=== PATIENT | male | born 1965 | race Caucasian/White ===

== ENCOUNTER 2017-01-17 07:45 | Inpatient (IN) | payer MEDICAID ==
[~2017-01-17] VITALS: Ht 185.4 cm; Wt 88.1 kg
[2017-01-17] VITALS (9 sets, daily range): BP systolic 112–148; BP diastolic 63–90
[~2017-01-17 07:45] MED LIST: DILANTIN 100MG100 MG PO; DILANTIN100 MG PO; IBUPROFEN800 MG PO; LIPITOR80 MG PO; OXYCODONE HCL30 MG PO; VALIUM 10MG TAB10 MG PO
--- OUTSIDE RECORDS SUMMARY | 2017-01-17 08:05 | External Medical Summary Rpt ---
Author Author , Organization [facility] Address Unknown Phone Unavailable Care Team Providers Care Artificial Breeding Technician Name Role Phone ELISSA BERMAN MD, PSC, Unavailable Unavailable ELISSA BERMAN MD, PSC BESSON, BESSON Unavailable Unavailable BESSON TORSTEN, BESSON Unavailable Unavailable TORSTEN TAMMY SAVI, TAMMY Unavailable Unavailable SAVI [facility] Unavailable Unavailable [place], [facility] Unavailable Unavailable [place], [facility] [place] LYNDA, LYNDA Unavailable Unavailable DUFF, DUFF Unavailable Unavailable ECKERLINE JR RIGO, Unavailable Unavailable ECKERLINE JR RIGO ESCOTT EDW, ESCOTT Unavailable Unavailable EDW [facility] Unavailable Unavailable [facility], [facility], [facility] Un[facility], [facility] Unavailable Unavailable INTERNAL MED, [facility] MAN JUS, Unavailable Unavailable MAN JUS NICKELS JACOBY, NICKELS Unavailable Unavailable JACOBY [facility] Unavailable Unavailable EMS, [facility] Unavailable [facility]available EMS, [facility] EMS [facility], Unavailable Unavailable [facility] Purpose Continuity of Care Document - 04-02-2014 through 2016 Problems Code Diagnosis DOS Provider Status R2241 LOCALIZED 12-09-2016 [facility] RIGHT LOWER LIMB E785 HYPERLIPIDE 12-02-2016 [place] UNSPECIFIED INTERNAL MED [id number] EPILEPSY 12-02-2016 [place] UNS NOT [place] INTRACT W/O INTERNAL STATUS MED EPILEPTICUS G894 CHRONIC 12-02-2016 [place] SYNDROME INTERNAL MED M479 SPONDYLOSIS 12-02-2016 [place] UNSPECIFIED INTERNAL MED G8929 OTHER 08-01-2016 CORNELIUS GALLOWAY MD, PSC PAIN M542 CERVICALGIA 08-01-2016 [facility] M545 LOW BACK 08-01-2016 [facility] M546 PAIN IN 08-01-2016 [facility] SPINE INC Z0283 ENCOUNTER 12-15-2015 [facility] BLOOD-ALCOH INC OL AND BLOOD-DRUG TEST 2572 OTHER 02-09-2015 [facility] TESTICULAR PHYSICIANS HYPOFUNCTIO LA N 2724 OTHER AND 02-09-2015 COMBINED UNSPECIFIED PHYSICIANS LA HYPERLIPIDE IDA 28710 OTHER 02-09-2015 COMBINED CONVULSIONS PHYSICIANS LA 7242 LUMBAGO 11-07-2014 [place] [facility] INTERNAL MED 3384 CHRONIC 08-15-2014 [place] SYNDROME INTERNAL MED 66448 OTHER 05-23-2014 [place] [facility] CARTILAGE OTHER 7937 NONSPC ABN 05-23-2014 [place] [facility] RAD SERV & OTH EXM FOUNDATION MUSCULSKELT L SYS 93147 UNSPECIFIED 05-23-2014 [place] [facility] FRACTURE [facility] LOWER END FOREARM V5489 OTHER 05-23-2014 [facility] AFTERCARE 99130 OTHER 04-25-2014 [facility] FRACTURES OF DISTAL END OF RADIUS V537 FITTING AND 04-25-2014 [place] [facility] OF [facility] ORTHOPEDIC DEVICE 20177 UNSPECIFIED 04-02-2014 [facility] EXOPHTHALMO [facility] S 7384 ACQUIRED 04-02-2014 [place] [facility] SPONDYLOLIS SERV THESIS [facility]OUNDATIO 8020 NASAL 04-02-2014 [facility] SERV CLOSED [facility]ATION FRACTURE 8026 ORBITAL 04-02-2014 [place] [facility] , SERV CLOSED [facility] FRACTURE 8028 OTHER 04-02-2014 [place] [facility]ACIAL [facility] B[facility]ATION CLOSED FRACTURE 01944 CLOSED 04-02-2014 [place] [facility]RA[facility]URE OF SERV [facility] UNSPECIFIED PART OF RADIUS 8702 LACERATION 04-02-2014 [place] [facility] EYELID SERV INVOLVING FOUNDATION LACRIMAL PASSAGES 920 CONTUSION 04-02-2014 [place] [facility] SCALP AND FOUNDATION NECK EXCEPT EYE 9599 INJURY 04-02-2014 [place] OTHER AND [place] UNSPECIFIED [facility] EMS UNSPECIFIED SITE E8849 OTHER 04-02-2014 [place] [facility]AL [facility] FALL FROM [facility] ONE LEVEL TO ANOTHER V714 OBSERVATION 04-02-2014 [place] [facility] FOLLOW[facility] OTHER [facility] ACCIDENT Medications Na ND Rx Da Fi Fi Am Da Di Ph RX Ph St me C No te ll ll ou ys ag ar # ys at rm s nt no ma ic us Or Da si cy ia de te s n re d OX 57 04 05 18 30 00 CL Ac YC 66 -0 -0 0. 00 IN ti OD 40 7- 5- 00 00 IC ve ON 22 20 20 0 42 E 48 17 17 74 PH HC 8 48 AR L MA 30 CY MG TA BL ET FL 50 03 04 16 30 00 CL Ac UT 38 -2 -2 .0 00 IN ti IC 30 8- 1- 00 00 IC ve 70 20 20 42 ON 01 17 17 45 PH E 6 67 AR AR MA OP CY 50 MC G SP RA Y PH 51 03 04 12 30 00 CL Ac EN 67 -2 -2 0. 00 IN ti YT 24 8- 1- 00 00 IC ve OI 11 20 20 0 41 N 10 17 17 73 PH SO 1 56 AR D MA EX CY T 10 0 MG CA P AT 60 03 04 30 30 00 CL Ac OR 50 -2 -2 .0 00 IN ti VA 52 8- 1- [address] 67 20 20 41 AT 10 17 17 99 PH IN 9 35 AR MA 80 CY MG TA BL ET IB 67 03 04 90 30 00 CL Ac UP 87 -2 -2 .0 00 IN ti RO 70 8- 1- 00 00 IC ve FE 32 20 20 42 N 10 17 17 45 PH 80 5 68 AR 0 MA MG CY TA BL ET OX 57 03 03 18 30 00 CL Ac YC 66 -0 -3 0. 00 IN ti OD 40 8- 1- 00 00 IC ve ON 22 20 20 0 42 E 48 17 17 45 PH HC 8 61 AR L MA 30 CY MG TA BL ET PH 51 02 03 12 30 00 CL Ac EN 67 -2 -2 0. 00 IN ti YT 24 3- 4- 00 00 IC ve OI 11 20 20 0 41 N 10 17 17 73 PH SO 1 56 AR D MA EX CY T 10 0 MG CA P AT 60 02 03 30 30 00 CL Ac OR 50 -2 -2 .0 00 IN ti VA 52 3- 4- [address] 67 20 20 41 AT 10 17 17 99 PH IN 9 35 AR MA 80 CY MG TA BL ET FL 50 02 03 16 30 00 CL Ac UT 38 -2 -2 .0 00 IN ti IC 30 3- 4- 00 00 IC ve 70 20 20 41 ON 01 17 17 29 PH E 6 37 AR AR MA OP CY 50 MC G SP RA Y IB 67 02 03 90 30 00 CL Ac UP 87 -2 -2 .0 00 IN ti RO 70 3- 4- 00 00 IC ve FE 32 20 20 41 N 10 17 17 29 PH 80 5 36 AR 0 MA MG CY TA BL ET OX 57 02 03 18 30 00 CL Ac YC 66 -0 -0 0. 00 IN ti OD 40 6- 3- 00 00 IC ve ON 22 20 20 0 42 E 48 17 17 12 PH HC 8 93 AR L MA 30 CY MG TA BL ET PH 51 01 02 12 30 00 CL Ac EN 67 -2 -1 0. 00 IN ti YT 24 4- 7- 00 00 IC ve OI 11 20 20 0 41 N 10 17 17 73 PH SO 1 56 AR D MA EX CY T 10 0 MG CA P FL 50 01 02 16 30 00 CL Ac UT 38 -2 -1 .0 00 IN ti IC 30 4- 7- 00 00 IC ve 70 20 20 41 ON 01 17 17 29 PH E 6 37 AR AR MA OP CY 50 MC G SP RA Y IB 67 01 02 90 30 00 CL Ac UP 87 -2 -1 .0 00 IN ti RO 70 4- 7- 00 00 IC ve FE 32 20 20 41 N 10 17 17 29 PH 80 5 36 AR 0 MA MG CY TA BL ET AT 60 01 02 30 30 00 CL Ac OR 50 -2 -1 .0 00 IN ti VA 52 4- 7- [address] 67 20 20 41 AT 10 17 17 29 PH IN 8 38 AR MA 80 CY MG TA BL ET OX 57 01 02 21 30 00 CL Ac YC 66 -0 -0 0. 00 IN ti OD 40 7- 3- 00 00 IC ve ON 22 20 20 0 41 E 48 17 17 84 PH HC 8 15 AR L MA 30 CY MG TA BL ET PH 51 12 01 12 30 00 CL Ac EN 67 -2 -2 0. 00 IN ti YT 24 7- 7- 00 00 IC ve OI 11 20 20 0 41 N 10 16 17 21 PH SO 1 59 AR D MA EX CY T 10 0 MG CA P AT 60 12 01 30 30 00 CL Ac OR 50 -2 -2 .0 00 IN ti VA 52 7- 7- [address] 67 20 20 41 AT 10 16 17 29 PH IN 8 38 AR MA 80 CY MG TA BL ET FL 00 12 01 16 30 00 CL Ac UT 05 -2 -2 .0 00 IN ti IC 43 7- 7- 00 00 IC ve 27 20 20 41 ON 09 16 17 29 PH E 9 37 AR AR MA OP CY 50 MC G SP RA Y IB 67 12 01 90 30 00 CL Ac UP 87 -2 -2 .0 00 IN ti RO 70 7- 7- 00 00 IC ve FE 32 20 20 41 N 10 16 17 29 PH 80 5 36 AR 0 MA MG CY TA BL ET DI 00 12 01 60 30 00 CL Ac AZ 37 -2 -2 .0 00 IN ti EP 80 8- 7- 00 00 IC ve AM 47 20 20 41 70 16 17 74 PH 10 5 56 AR MA MG CY TA BL ET OX 57 12 01 21 30 00 CL Ac YC 66 -0 -1 0. 00 IN ti OD 40 8- 3- 00 00 IC ve ON 22 20 20 0 41 E 48 16 17 56 PH HC 8 68 AR L MA 30 CY MG TA BL ET NI 00 02 01 36 30 00 CL Ac CO 11 -1 -0 0. 00 IN ti TI 30 2- 9- 00 00 IC ve NE 87 20 20 0 39 4 30 16 17 13 PH 5 73 AR MG MA CY LO ZE NG E Procedures Procedure DOS Code Location Performer Comment RADEX 91267 [place] [facility] FOOT 7 MEDICAL COMPLETE IMAGING MINIMUM 3 ASS VIEWS COMPREHEN 99877 COMBINED COMBINED SIVE 7 PHYSICIAN PHYSICIAN METABOLIC S LA S LA PANEL LIPID 27861 COMBINED COMBINED PANEL 7 PHYSICIAN PHYSICIAN S [place] S [place] DRUG 51137 COMBINED COMBINED SCREEN 7 PHYSICIAN PHYSICIAN QUANTITAT S LA S LA TAMERA PHENYTOIN TOTAL DRUG 97266 COMBINED TAMMY SCREEN 6 PHYSICIAN SAVI QUANTITAT S LA TAMERA PHENYTOIN TOTAL LIPID 09107 COMBINED TAMMY PANEL 6 PHYSICIAN SAVI S LA COMPREHEN 02190 COMBINED TAMMY SIVE 6 PHYSICIAN SAVI METABOLIC S LA PANEL DRUG TST G0477 COMBINED TAMMY PRESUMP;C 6 PHYSICIAN SAVI PBL BEING S LA READ DC OPT OBV ONLY DRUG TST G0477 [facility] PRESUMP;C 6 [facility] PBL BEING INC INC READ DC OPT OBV ONLY DRUG TEST G0482 [facility] DEFINITV [address] ID INC INC METH P DAY 15-21 DR SANIA COMPREHEN 18920 COMBINED COMBINED SIVE 5 PHYSICIAN PHYSICIAN METABOLIC S LA S LA PANEL LIPID 20912 COMBINED COMBINED PANEL 5 PHYSICIAN PHYSICIAN S LA S LA DRUG 72457 COMBINED COMBINED SCREEN 5 PHYSICIAN PHYSICIAN QUANTITAT S LA S LA TAMERA PHENYTOIN TOTAL BLOOD 17974 COMBINED COMBINED COUNT 5 PHYSICIAN PHYSICIAN COMPLETE S LA S LA AUTO&[place] [address] COMBINED COMBINED TESTOSTER 4 PHYSICIAN PHYSICIAN ONE TOTAL S LA S LA BLOOD 23515 COMBINED COMBINED COUNT 4 PHYSICIAN PHYSICIAN COMPLETE S LA S LA AUTO&AUTO DIFRNTL WBC DRUG 90560 COMBINED COMBINED SCREEN 4 PHYSICIAN PHYSICIAN QUANTITAT S LA S LA TAMERA PHENYTOIN TOTAL COMPREHEN 64003 COMBINED COMBINED SIVE 4 PHYSICIAN PHYSICIAN METABOLIC S LA S LA PANEL LIPID 97400 COMBINED COMBINED PANEL 4 [place] [address] COMBINED COMBINED PROSTATE 4 PHYSICIAN PHYSICIAN SPECIFIC S LA S LA ANTIGEN TOTAL RADEX 98889 [facility] HOSPITAL MINIMUM 3 VIEWS RADEX 75261 [place] [facility] 4 MEDICAL Y JUS COMPLETE SERV MINIMUM 3 FOUNDATIO VIEWS RADEX 88440 [place] FOREARM 2 4 MEDICAL JACOBY VIEWS SERV [place] RADEX 16455 [place] 4 MEDICAL JACOBY COMPLETE SERV MINIMUM 3 FOUNDATIO VIEWS AMB A0427 [facility] SERVICE 4 [facility] TRANSPORT LEVEL 1 RADIOLOGI 94014 [place] C 4 MEDICAL JACOBY EXAMINATI SERV [place] [address] [place] THORACIC 4 MEDICAL JACOBY SPINE W/[place] [address] [place] ANGIOGRAP 4 MEDICAL EDW HY NECK SERV W/CONTRAS FOUNDAT[place] T/[place] [address] [place] ANGIOGRAP 4 MEDICAL JACOBY HY CHEST SERV W/CONTRAS FOUNDATIO T/[place] [address] [place] CERVICAL 4 MEDICAL JACOBY SPINE W/O SERV CONTRAST FOUNDATIO MATERIAL RADEX 66469 [place] ELBOW 4 MEDICAL JACOBY COMPLETE SERV MINIMUM 3 FOUNDATIO VIEWS RADEX 76706 [place] HAND 4 MEDICAL JACOBY MINIMUM [address] [place] [address] [place] ABDOMEN & 4 MEDICAL JACOBY PELVIS SERV W/CONTRAS FOUNDATIO T MATERIAL GROUND A0425 [facility] [place] [address] [place] MAXILLOFA 4 MEDICAL EDW CIAL W/[place] [address] PAUL ESCOTT ANGIOGRAP 4 MEDICAL EDW HY HEAD SERV W/CONTRAS FOUNDATIO T/NONCONT N [place] LUMBAR 53423 [place] SPINE 4 MEDICAL JACOBY W/O SERV CONTRAST FOUNDATIO MATERIAL RADIOLOGI 27406 [place] C 4 MEDICAL JACOBY EXAMINATI SERV ON PELVIS FOUNDATIO 1/2 VIEWS Encounters Encounter Start End Date Code Location Performer Type Date [facility]PAT[facility]EN INC T OFFICE 53748 [facility] OUTPATI[facility] 7 7 [facility] T VISIT INTERNAL 25 MED MINUTES OFFICE 37696 [facility] OUTPATIEN 6 6 [facility] TORSTEN T VISIT INTERNAL 25 MED MINUTES OFFICE 86972 ELISSA DUFF OUTPATIEN 6 6 MD CULLEN, T [facility] PSC MINUTES [facility]OSP[facility] - 6 6 [facility] OUTPATIEN INC T OFFICE 54925 [facility] 6 6 MEM [facility] T NEW INC MINUTES OFFICE 86733 [place] [facility] OUTPATIEN 6 6 [facility] TORSTEN T VISIT INTERNAL 25 MED MINUTES [facility]OS[facility] - 6 6 [facility] OUTPATIEN INC T OFFICE 13129 [place] [facility] OUTPATIEN 5 5 [facility] TORSTEN T VISIT INTERNAL 15 MED MINUTES OFFICE 54418 [facility] [facility] OUTPATIEN 5 5 [facility] TORSTEN T VISIT INTERNAL 15 MED MINUTES OFFICE 53312 [facility] [facility] OUTPATIEN 4 4 [facility] TORSTEN T VISIT INTERNAL 25 MED MINUTES HOSPITAL UNIVERSIT - 4 4 Y [facility] T OFFICE 86842 [facility] 4 4 Y T VISIT HOSPITAL 15 MINUTES OFFICE 88546 [facility] 4 4 Y T VISIT HOSPITAL 10 MINUTES HOSPITAL UNIVERSIT - 4 4 Y [facility] T EMERGENCY 03555 PAUL ECKERLINE 4 4 MEDICAL JR [facility] DEPARTMEN SERV T VISIT FOUNDATIO HIGH/URGE N NT SEVERITY
--- OUTSIDE RECORDS SUMMARY | 2017-01-17 08:05 | External Medical Summary Rpt ---
Author Author , Organization [employer] Address Unknown Phone Unavailable Care Team Providers Care Underwriting Technician Name Role Phone ELISSA BERMAN MD, PSC, Unavailable Unavailable ELISSA BERMAN MD, PSC BESSON, BESSON Unavailable Unavailable BESSON TORSTEN, BESSON Unavailable Unavailable TORSTEN TAMMY SAVI, TAMMY Unavailable Unavailable SAVI [facility] Unavailable Unavailable [place], [facility] [place] [facility] Unavailable Unavailable [place], [facility] [place] LYNDA, LYDNA Unavailable Unavailable DUFF, DUFF Unavailable Unavailable ECKERLINE JR RIGO, Unavailable Unavailable ECKERLINE JR RIGO ESCOTT EDW, ESCOTT Unavailable Unavailable EDW [facility] Unavailable Unavailable INC, [facility] Un[facility] Unavailable [facility], [facility] Un[facility] Un[facility], [facility], [facility] Un[facility] Un[facility], [facility] MAN JUS, Unavailable Unavailable MAN JUS NICKELS JACOBY, NICKELS Unavailable Unavailable JACOBY [facility] Unavailable Unavailable EMS, [facility] Unavailable Unavailable EMS, [facility], Unavailable Unavailable [facility] Purpose Continuity of Care Document - 04-02-2014 through 2016 Problems Code Diagnosis DOS Provider Status R2241 LOCALIZED 12-09-2016 [place] [place] [facility] RIGHT LOWER LIMB E785 HYPERLIPIDE 12-02-2016 [place] UNSPECIFIED INTERNAL MED [id number] EPILEPSY 12-02-2016 [place] UNS NOT [place] INTRACT [...] 02-09-2015 COMBINED UNSPECIFIED PHYSICIANS [place] HYPERLIPIDE IDA 49438 OTHER 02-09-2015 COMBINED CONVULSIONS PHYSICIANS [place] 7242 LUMBAGO 11-07-2014 [place] [facility] INTERNAL MED 3384 CHRONIC 08-15-2014 [place] SYNDROME INTERNAL MED 39892 OTHER 05-23-2014 [place] [facility] DIS[facility] SERV [facility] CARTILAGE OTHER 7937 NONSPC ABN 05-23-2014 [place] [facility] FINDNG RAD SERV & OTH EXM FOUNDATION [place] SYS 99042 UNSPECIFIED 05-23-2014 [place] [facility] CL[facility]ED SERV FRACTURE FOUNDATION LOWER END FOREARM V5489 OTHER 05-23-2014 [facility] AFTERCARE 08201 OTHER 04-25-2014 [facility] FRACTURES OF DISTAL END OF RADIUS V537 FITTING AND 04-25-2014 [place] [facility] ADJUSTMENT SERV OF [facility]ATION ORTHOPEDIC DEVICE 06251 UNSPECIFIED 04-02-2014 [place] [facility] EXOPHTHALMO FOUNDATION S 7384 ACQUIRED 04-02-2014 [place] [facility] SPONDYLOLIS SERV THESIS FOUNDATIO 8020 NASAL 04-02-2014 [facility], SERV CLOSED FOUNDATION FRACTURE 8026 ORBITAL 04-02-2014 [facility] , SERV CLOSED FOUNDATION FRACTURE 8028 OTHER 04-02-2014 [facility] FACIAL SERV B[facility]ES FOUNDATION CLOSED FRACTURE 67016 CLOSED 04-02-2014 [place] [facility] FRACTURE OF SERV FOUNDATION UNSPECIFIED PART OF RADIUS 8702 LACERATION 04-02-2014 [facility] EYELID SERV INVOLVING FOUNDATION LACRIMAL PASSAGES 920 CONTUSION 04-02-2014 [facility] FACE SERV SCALP AND FOUNDATION NECK EXCEPT EYE 9599 INJURY 04-02-2014 [facility] OTHER AND [place] UNSPECIFIED COUNTY EMS UNSPECIFIED SITE E8849 OTHER 04-02-2014 [place] [facility] ACCIDENTAL SERV FALL FROM FOUNDATION ONE LEVEL TO ANOTHER V714 OBSERVATION 04-02-2014 [place] [facility] FOLLOWING SERV OTHER FOUNDATION ACCIDENT Medications [...] 17 45 PH E 6 67 AR GA MA OP CY 50 MC G SP [...] 17 29 PH E 6 37 AR GA MA OP CY 50 MC G SP [...] 17 29 PH E 6 37 AR GA MA OP CY 50 MC G SP [...] 17 29 PH E 9 37 AR GA MA OP CY 50 MC G SP [...] Procedure DOS Code Location Performer Comment RADEX 73632 [place] 7 MEDICAL COMPLETE IMAGING MINIMUM 3 ASS VIEWS COMPREHEN 55434 COMBINED COMBINED SIVE 7 PHYSICIAN PHYSICIAN METABOLIC S LA S LA PANEL LIPID 77063 COMBINED COMBINED PANEL 7 PHYSICIAN PHYSICIAN S LA S LA DRUG 87276 COMBINED COMBINED SCREEN 7 PHYSICIAN PHYSICIAN QUANTITAT S LA S LA TAMERA PHENYTOIN TOTAL DRUG 64918 COMBINED TAMMY SCREEN 6 PHYSICIAN SAVI QUANTITAT S LA TAMERA PHENYTOIN TOTAL LIPID 28561 COMBINED TAMMY PANEL 6 PHYSICIAN SAVI S LA COMPREHEN 42759 COMBINED TAMMY SIVE 6 PHYSICIAN SAVI METABOLIC [...] METH P DAY 15-21 DR SANIA COMPREHEN 93950 COMBINED COMBINED SIVE 5 PHYSICIAN PHYSICIAN METABOLIC S LA S LA PANEL LIPID 71080 COMBINED COMBINED PANEL 5 PHYSICIAN PHYSICIAN S LA S LA DRUG 73133 COMBINED COMBINED SCREEN 5 PHYSICIAN PHYSICIAN QUANTITAT S LA S LA TAMERA PHENYTOIN TOTAL BLOOD 99211 COMBINED COMBINED COUNT 5 PHYSICIAN PHYSICIAN COMPLETE S LA S LA AUTO&[place] [address] COMBINED COMBINED TESTOSTER 4 PHYSICIAN PHYSICIAN ONE TOTAL S LA S LA BLOOD 52520 COMBINED COMBINED COUNT 4 PHYSICIAN PHYSICIAN COMPLETE S LA S LA AUTO&AUTO DIFRNTL WBC DRUG 93858 COMBINED COMBINED SCREEN 4 PHYSICIAN PHYSICIAN QUANTITAT S LA S LA TAMERA PHENYTOIN TOTAL COMPREHEN 57139 COMBINED COMBINED SIVE 4 PHYSICIAN PHYSICIAN METABOLIC S LA S LA PANEL LIPID 08453 COMBINED COMBINED PANEL 4 [place] [address] COMBINED COMBINED PROSTATE 4 PHYSICIAN PHYSICIAN SPECIFIC S LA S LA ANTIGEN TOTAL RADEX 50101 [facility] HOSPITAL MINIMUM 3 VIEWS RADEX 47874 [place] [facility] 4 MEDICAL Y JUS COMPLETE SERV MINIMUM 3 FOUNDATIO VIEWS RADEX 95067 [place] FOREARM 2 4 MEDICAL JACOBY VIEWS SERV FOUNDATIO RADEX 32161 [place] WRIST 4 MEDICAL JACOBY COMPLETE SERV MINIMUM 3 FOUNDATIO VIEWS AMB A0427 [facility] SERVICE 4 [facility] EMS TRANSPORT LEVEL 1 RADIOLOGI 29629 [place] C 4 MEDICAL JACOBY EXAMINATI SERV ON CHE[place] [address] [place] THORACIC 4 MEDICAL JACOBY SPINE W/[place] [address] [place] [facility] ANGIOGRAP 4 MEDICAL EDW HY NECK SERV W/CONTRAS [place] [address] [place] ANGIOGRAP 4 MEDICAL JACOBY HY CHEST SERV W/CONTR[place] [address] [place] CERVICAL 4 MEDICAL JACOBY SPINE W/O SERV CONTRAST FOUNDATIO MATERIAL RADEX 19152 [place] N[place] ELBOW 4 MEDICAL JACOBY COMPLETE SERV MINIMUM 3 FOUNDATIO VIEWS RADEX 88499 [place] HAND 4 MEDICAL JACOBY MINIMUM [address] [place] [address] [place] ABDOMEN & 4 MEDICAL JACOBY PELVIS SERV W/CONTRAS FOUNDATIO T MATERIAL GROUND A0425 [facility] [place] [address] [place] MAXILLOFA 4 MEDICAL EDW CIAL W/[place] [address] PAUL ESCOTT ANGIOGRAP 4 MEDICAL EDW HY HEAD SERV W/CONTRAS FOUNDATIO T/NONCONT N [place] LUMBAR 96755 [place] SPINE 4 MEDICAL JACOBY W/O SERV CONTRAST FOUNDATIO MATERIAL RADIOLOGI 93784 [place] C 4 MEDICAL JACOBY EXAMINATI SERV ON PELVIS FOUNDATIO 1/2 VIEWS Encounters Encounter Start End Date Code Location Performer Type Date [facility]PAT[facility] T OFFICE 39324 [facility] 7 7 [facility] T VISIT INTERNAL 25 MED MINUTES OFFICE 81493 [facility] 6 6 [facility] TORSTEN T VISIT INTERNAL 25 MED MINUTES OFFICE 76565 ELISSA DUFF OUTPATIEN 6 6 MD CULLEN, T [facility] P[facility] MINUTES [facility]OS[facility] - 6 6 [facility] OUTPATIEN INC T OFFICE 41372 [facility] 6 6 [facility] T NEW INC MINUTES OFFICE 59325 [facility] OUT[facility] 6 6 [facility] TORSTEN T VISIT INTERNAL 25 MED MINUTES [facility]OSP[facility] - 6 6 [facility] OUTPATIEN INC T OFFICE 04073 [facility] 5 5 [facility] TORSTEN T VISIT INTERNAL 15 MED MINUTES OFFICE 29870 [facility] 5 5 [facility] TORSTEN T VISIT INTERNAL 15 MED MINUTES OFFICE 39088 [facility] OUT[facility] 4 4 [facility] TORSTEN T VISIT INTERNAL 25 MED MINUTES HOSPITAL UNIVERSIT - 4 4 Y [facility] T OFFICE 73563 [facility] 4 4 Y T VISIT HOSPITAL 15 MINUTES OFFICE 95936 [facility] 4 4 Y T VISIT HOSPITAL 10 MINUTES HOSPITAL UNIVERSIT - 4 4 Y [facility] T EMERGENCY 61531 PAUL ECKERLINE 4 4 MEDICAL JR [facility] DEPARTMEN SERV T VISIT FOUNDATIO HIGH/URGE N NT SEVERITY
--- OUTSIDE RECORDS SUMMARY | 2017-01-17 08:07 | External Medical Summary Rpt ---
Author Author [employer] Yun, [employer] Organization [employer] Address Unknown Phone Unavailable
--- OUTSIDE RECORDS SUMMARY | 2017-01-17 08:07 | External Medical Summary Rpt ---
Demographics Preferred Language Libyan Marital Status Unknown Gnosticist Affiliation Unknown Race Unknown Ethnic Group Unknown Author Author , Organization [employer] Address Unknown Phone Unavailable Purpose Continuity of Care Document - through 2016 Immunization No patient found.
--- OUTSIDE RECORDS SUMMARY | 2017-01-17 08:07 | External Medical Summary Rpt ---
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 Name Role Phone ELISSA BERMAN MD, PSC, Unavailable Unavailable ELISSA BERMAN MD, PSC BESSON, BESSON Unavailable Unavailable BESSON TORSTEN, BESSON Unavailable Unavailable TORSTEN TAMMY SAVI, TAMMY Unavailable Unavailable SAVI [facility] Un[facility] Unavailable [facility], [facility] Unavailable Unavailable [facility], [facility] [place] DUFF, DUFF Unavailable Unavailable ECKERLINE JR RIGO, Unavailable Unavailable ECKERLINE JR RIGO ESCOTT EDW, ESCOTT Unavailable Unavailable EDW [facility] Un[facility] Un[facility], [facility], [facility] MOIZ JUAN ANTONIO, MOIZ JUAN ANTONIO Unavailable Unavailable [facility] Unavailable Unavailable INTERNAL MED, [facility] JUS, Unavailable Unavailable MAN JUS NICKELS JACOBY, NICKELS Unavailable Unavailable JACOBY [facility] Unavailable Unavailable EMS, [facility] Unavailable Unavailable EMS, [facility], Unavailable Unavailable [facility] Purpose Continuity of Care Document - 04-02-2014 through 2016 Problems Code Diagnosis DOS Provider Status R2241 LOCALIZED 12-09-2016 [facility] MEDICAL MASS & LUMP IMAGING ASS RIGHT LOWER LIMB E785 HYPERLIPIDE 12-02-2016 [facility] [place] UNSPECIFIED INTERNAL MED [id number] EPILEPSY 12-02-2016 [facility] NOT [facility] INTRACT [...] SPINE INC Z0283 ENCOUNTER 12-15-2015 [facility] ARM[facility] BLOOD-ALCOH INC OL AND BLOOD-DRUG TEST 2572 OTHER 02-09-2015 [facility] TESTICULAR PHYSICIANS HYPOFUNCTIO LA N 2724 OTHER AND 02-09-2015 COMBINED UNSPECIFIED PHYSICIANS LA HYPERLIPIDE IDA 99224 OTHER 02-09-2015 [facility] CONVULSIONS PHYSICIANS LA 7242 LUMBAGO 11-07-2014 [facility] INTERNAL MED 3384 CHRONIC 08-15-2014 [facility] [place] SYNDROME INTERNAL MED 16335 OTHER 05-23-2014 [facility] DISORDERS SERV OF B[facility] AND [facility] CARTILAGE OTHER 7937 NONSPC ABN 05-23-2014 [facility] FINDNG RAD SERV & OTH EXM FOUNDATION [place] 01619 UNSPECIFIED 05-23-2014 [facility] CLOSED SERV FRACTURE FOUNDATION LOWER END FOREARM V5489 OTHER 05-23-2014 [facility] AFTERCARE 84093 OTHER 04-25-2014 [facility] FRACTURES OF DISTAL END OF RADIUS V537 FITTING AND 04-25-2014 [facility] ADJUSTMENT SERV OF [facility] ORTHOPEDIC DEVICE 21105 UNSPECIFIED 04-02-2014 [facility] EXOPHTHALMO [facility] S 7384 ACQUIRED 04-02-2014 [facility] SPONDYLOLIS SERV THESIS [facility]AT[facility] 8020 NASAL 04-02-2014 [facility], SERV CLOSED [facility]OUNDATION FRACTURE 8026 ORBITAL 04-02-2014 [facility] , SERV CLOSED [facility] FRACTURE 8028 OTHER 04-02-2014 [facility] FACIAL SERV [facility]ATION CLOSED FRACTURE 73652 CLOSED 04-02-2014 [facility] FRACTURE OF SERV [facility] UNSPECIFIED PART OF RADIUS 8702 LACERATION 04-02-2014 [facility] EYELID SERV INVOLVING FOUNDATION LACRIMAL PASSAGES 920 CONTUSION 04-02-2014 [facility] FACE SERV SCALP AND FOUNDATION NECK EXCEPT EYE 9599 INJURY 04-02-2014 [facility] OTHER AND [place] UNSPECIFIED [facility] EMS UNSPECIFIED SITE E8849 OTHER 04-02-2014 [facility] ACCIDENTAL SERV FALL FROM FOUNDATION ONE LEVEL TO ANOTHER V714 OBSERVATION 04-02-2014 [facility] FOLLOWING SERV OTHER FOUNDATION ACCIDENT Medications [...] 17 45 PH E 6 67 AR [place] MA OP CY 50 MC G SP [...] 17 29 PH E 6 37 AR [place] MA OP CY 50 MC G SP [...] 17 29 PH E 6 37 AR [place] MA OP CY 50 MC G SP [...] MA 30 CY MG TA BL ET DI 00 12 01 60 30 00 CL Ac AZ 37 -2 -2 .0 00 IN ti EP 80 8- 7- 00 00 IC ve AM 47 20 20 41 70 16 17 74 PH 10 5 56 AR MA MG CY TA BL ET PH 51 12 01 [...] 17 29 PH E 9 37 AR [place] MA OP CY 50 MC G SP [...] Procedure DOS Code Location Performer Comment RADEX 89485 [facility] FOOT 7 [facility] COMPLETE INC INC MINIMUM 3 VIEWS COMPREHEN 36929 COMBINED COMBINED SIVE 7 PHYSICIAN PHYSICIAN METABOLIC S LA S LA PANEL LIPID 91793 COMBINED COMBINED PANEL 7 PHYSICIAN PHYSICIAN S LA S LA DRUG 66038 COMBINED COMBINED SCREEN 7 PHYSICIAN PHYSICIAN QUANTITAT S LA S LA TAMERA PHENYTOIN TOTAL LIPID 56333 COMBINED TAMMY PANEL 6 PHYSICIAN SAVI S LA DRUG TST G0477 COMBINED TAMMY PRESUMP;C 6 PHYSICIAN SAVI PBL BEING S LA READ DC OPT OBV ONLY DRUG 85253 COMBINED TAMMY SCREEN 6 PHYSICIAN SAVI QUANTITAT S LA TAMERA PHENYTOIN TOTAL COMPREHEN 70833 COMBINED TAMMY SIVE 6 PHYSICIAN SAVI METABOLIC S LA PANEL DRUG TEST G0482 [facility] DEFINITV [address] ID INC INC METH P DAY 15-21 DR CL DRUG TST G0477 [facility] PRESUMP;C 6 MEM HOSP MEM HOSP PBL BEING INC INC READ DC OPT OBV ONLY LIPID 61547 COMBINED COMBINED PANEL 5 PHYSICIAN PHYSICIAN S LA S LA COMPREHEN 74527 COMBINED COMBINED SIVE 5 PHYSICIAN PHYSICIAN METABOLIC S LA S LA PANEL BLOOD 11407 COMBINED COMBINED COUNT 5 PHYSICIAN PHYSICIAN COMPLETE S LA S LA AUTO&AUTO DIFRNTL WBC DRUG 98329 COMBINED COMBINED SCREEN 5 PHYSICIAN PHYSICIAN QUANTITAT S LA S [place] [address] COMBINED COMBINED TESTOSTER 4 PHYSICIAN PHYSICIAN ONE TOTAL S LA S LA BLOOD 64010 COMBINED COMBINED COUNT 4 PHYSICIAN PHYSICIAN COMPLETE S LA S LA AUTO&AUTO DIFRNTL WBC COMPREHEN 09955 COMBINED COMBINED SIVE 4 PHYSICIAN PHYSICIAN METABOLIC S LA S LA PANEL DRUG 22496 COMBINED COMBINED SCREEN 4 PHYSICIAN PHYSICIAN QUANTITAT S LA [place] [address] COMBINED COMBINED PROSTATE 4 PHYSICIAN PHYSICIAN SPECIFIC S LA S LA ANTIGEN TOTAL LIPID 41057 COMBINED COMBINED PANEL 4 PHYSICIAN PHYSICIAN S LA S LA RADEX 86605 [facility] HOSPITAL MINIMUM 3 VIEWS RADEX 47567 [place] [facility]UAN ANTONIO WRIST 4 MEDICAL COMPLETE SERV MINIMUM 3 [place]OUNDAT[place] VIEWS N RADEX 63280 [place] FOREARM 2 4 MEDICAL JACOBY VIEWS SERV FOUNDAT[facility] RADEX 45963 [facility] WRIST 4 MEDICAL Y JUS COMPLETE SERV MINIMUM 3 FOUNDATIO VIEWS N GROUND A0425 [facility] [place] [place] [address] [place] MAXILLOFA 4 MEDICAL EDW CIAL W/[place] [address] [place] ANGIOGRAP 4 MEDICAL EDW HY HEAD SERV W/CONTRAS FOUNDATIO T/NONCONT N RAST [place] LUMBAR 28[address] [place]ICKEL[place] SPINE 4 MEDICAL JACOBY W/O SERV CONTRAST [facility]OUNDAT[facility] MATERIAL RADIOLOGI 06146 [place] C 4 MEDICAL JACOBY EXAMINATI SERV ON PELVIS FOUNDATIO 1/[address] [place] [address] [place] ABDOMEN & 4 MEDICAL JACOBY PELVIS SERV W/CONTRAS FOUNDATIO T MATERIAL AMB A0427 [facility] SERVICE [address] [place] [address] EMERGENCY EMS EMS TRANSPORT LEVEL 1 RADIOLOGI 51082 [place]ICKEL[place] C 4 MEDICAL JACOBY EXAMINATI SERV ON CHE[place] [address] [place] THORACIC 4 MEDICAL JACOBY SPINE W/[place] [address] [place] ANGIOGRAP 4 MEDICAL EDW HY NECK SERV W/CONTRAS [place]OUNDAT[place] T/[place] [address] [place] ANGIOGRAP 4 MEDICAL JACOBY HY CHEST SERV W/CONTR[place] [address] [place] CERVICAL 4 MEDICAL JACOBY SPINE W/O SERV CONTRAST FOUNDATIO MATERIAL RADEX 91814 [place] ELBOW 4 MEDICAL JACOBY COMPLETE SERV MINIMUM 3 FOUNDATIO VIEWS RADEX 76384 [place] HAND 4 MEDICAL JACOBY MINIMUM 3 SERV VIEWS FOUNDATIO Encounters Encounter Start End Date Code Location Performer Type Date [facility] - 7 7 [facility] OUTPATIEN INC T OFFICE 95293 [facility] OUTPATIEN 7 7 VALLEY T VISIT INTERNAL 25 MED MINUTES OFFICE 90292 [facility] OUTPATIEN 6 6 [facility]LEY TORSTEN T VISIT INTERNAL 25 MED MINUTES HOSPITAL [facility] - 6 6 [facility] H[facility] OUTPATIEN INC T OFFICE 51017 ELISSA DUFF OUTPATIEN 6 6 MD CULLEN, T [facility] PSC MINUTES OFFICE 31964 [facility] OUTPATIEN 6 6 MEM HOSP T NEW 10 INC MINUTES OFFICE 18936 [place] [facility] OUTPATIEN 6 6 [facility]LEY TORSTEN T VISIT INTERNAL 25 MED MINUTES HOSPITAL V[facility] - 6 6 MEM HOSP OUTPATIEN INC T OFFICE 87020 [place] [facility] OUTPATIEN 5 5 [facility]LEY TORSTEN T VISIT INTERNAL 15 MED MINUTES OFFICE 98292 [facility] [facility] OUTPATIEN 5 5 [facility]LEY TORSTEN T VISIT INTERNAL 15 MED MINUTES OFFICE 76136 [facility] [facility] OUTPATIEN 4 4 [facility]LEY TORSTEN T VISIT INTERNAL 25 MED MINUTES OFFICE 58677 [facility] 4 4 Y T VISIT HOSPITAL 15 MINUTES HOSPITAL UNIVERSIT - 4 4 Y [facility] T [facility] UNIVERSIT - 4 4 Y [facility] T OFFICE 90930 [facility] 4 4 Y T VISIT HOSPITAL 10 MINUTES EMERGENCY 92526 PAUL ECKERLINE 4 4 MEDICAL JR [facility] T VISIT FOUNDAT[facility] HIGH/URGE N NT SEVERITY
--- OUTSIDE RECORDS SUMMARY | 2017-01-17 08:07 | External Medical Summary Rpt ---
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 Name Role Phone ELISSA BERMAN MD, PSC, [...] Unavailable Unavailable INC, [facility] Unavailable Unavailable [facility], [facility] MOIZ JUAN ANTONIO, MOIZ JUAN ANTONIO Unavailable Unavailable [facility] Un[facility] Un[facility] ORAN JUS, Unavailable Unavailable MAN JUS NICKELS JACOBY, NICKELS Unavailable Unavailable JACOBY [facility] Unavailable Unavailable EMS, [facility] Unavailable Unavailable EMS, [facility], Unavailable Unavailable [facility] Purpose Continuity of Care Document - 04-02-2014 through 2016 Problems Code Diagnosis DOS Provider Status R2241 LOCALIZED 12-09-2016 [facility] MEDICAL MASS & LUMP IMAGING ASS RIGHT LOWER LIMB E785 HYPERLIPIDE 12-02-2016 [place] UNSPECIFIED INTERNAL MED [id number] EPILEPSY 12-02-2016 [place] INTRACT [...] SPINE INC Z0283 ENCOUNTER 12-15-2015 [facility] ARMAS [facility] BLOOD-ALCOH INC OL AND BLOOD-DRUG TEST 2572 OTHER 02-09-2015 [facility] TESTICULAR PHYSICIANS HYPOFUNCTIO LA N 2724 OTHER AND 02-09-2015 COMBINED UNSPECIFIED PHYSICIANS LA HYPERLIPIDE IDA 77759 OTHER 02-09-2015 COMBINED CONVULSIONS PHYSICIANS LA 7242 LUMBAGO 11-07-2014 [facility] INTERNAL MED 3384 CHRONIC 08-15-2014 [place] SYNDROME INTERNAL MED 74730 OTHER 05-23-2014 [facility] DISORDERS SERV OF BONE AND [facility] CARTILAGE OTHER 7937 NONSPC ABN 05-23-2014 [facility] FINDNG RAD SERV & OTH EXM FOUNDATION [place] [address]5439 UNSPECIFIED 05-23-2014 [facility] CLOSED SERV FRACTURE FOUNDATION LOWER END FOREARM V5489 OTHER 05-23-2014 [facility] AFTERCARE 50183 OTHER 04-25-2014 [facility] FRACTURES OF DISTAL END OF RADIUS V537 FITTING AND 04-25-2014 [facility] ADJUSTMENT SERV OF FOUNDATION ORTHOPEDIC DEVICE 95338 UNSPECIFIED 04-02-2014 [facility] SERV EXOPHTHALMO FOUNDATION S 7384 ACQUIRED 04-02-2014 [facility] SPONDYLOLIS SERV THESIS FOUNDATIO 8020 NASAL 04-02-2014 [facility], SERV CLOSED FOUNDATION FRACTURE 8026 ORBITAL 04-02-2014 [facility] FLOOR , SERV CLOSED FOUNDATION FRACTURE 8028 OTHER 04-02-2014 [facility] FACIAL SERV B[facility]ES FOUNDATION CLOSED FRACTURE 23673 CLOSED 04-02-2014 [facility] FRACTURE OF SERV FOUNDATION UNSPECIFIED PART OF RADIUS 8702 LACERATION 04-02-2014 [facility] OF EYELID SERV INVOLVING FOUNDATION LACRIMAL PASSAGES 920 CONTUSION 04-02-2014 [facility] OF FACE SERV SCALP AND FOUNDATION NECK EXCEPT EYE 9599 INJURY 04-02-2014 [place] OTHER AND [place] UNSPECIFIED COUNTY EMS UNSPECIFIED SITE E8849 OTHER 04-02-2014 [facility] ACCIDENTAL SERV FALL FROM FOUNDATION ONE LEVEL TO ANOTHER V714 OBSERVATION 04-02-2014 [facility] FOLLOWING SERV OTHER FOUNDATION ACCIDENT Medications [...] 17 45 PH E 6 67 [place] MA OP CY 50 MC G SP [...] 17 29 PH E 6 37 AR [place] MA OP CY 50 MC G SP [...] 17 29 PH E 6 37 AR [place] MA OP CY 50 MC G SP [...] 17 29 PH E 9 37 AR [place] MA OP CY 50 MC G SP [...] Procedure DOS Code Location Performer Comment RADEX 78923 [facility] FOOT 7 [facility] COMPLETE INC INC MINIMUM 3 VIEWS COMPREHEN 25256 COMBINED COMBINED SIVE 7 PHYSICIAN PHYSICIAN METABOLIC S LA S LA PANEL LIPID 10850 COMBINED COMBINED PANEL 7 PHYSICIAN PHYSICIAN S LA S LA DRUG 61038 COMBINED COMBINED SCREEN 7 PHYSICIAN PHYSICIAN QUANTITAT S LA S LA TAMERA PHENYTOIN TOTAL LIPID 49143 COMBINED TAMMY PANEL 6 PHYSICIAN SAVI S LA DRUG TST G0477 COMBINED TAMMY PRESUMP;C 6 PHYSICIAN SAVI PBL BEING S LA READ DC OPT OBV ONLY DRUG 56301 COMBINED TAMMY SCREEN 6 PHYSICIAN SAVI QUANTITAT S LA TAMERA PHENYTOIN TOTAL COMPREHEN 30835 COMBINED TAMMY SIVE 6 PHYSICIAN SAVI METABOLIC S LA PANEL DRUG TEST G0482 [facility] DEFINITV [address] ID INC INC METH P DAY 15-21 DR CL DRUG TST G0477 [facility] PRESUMP;C 6 MEM HOSP MEM HOSP PBL BEING INC INC READ DC OPT OBV ONLY LIPID 10402 COMBINED COMBINED PANEL 5 PHYSICIAN PHYSICIAN S LA S LA COMPREHEN 85219 COMBINED COMBINED SIVE 5 PHYSICIAN PHYSICIAN METABOLIC S LA S LA PANEL BLOOD 24694 COMBINED COMBINED COUNT 5 PHYSICIAN PHYSICIAN COMPLETE S LA S LA AUTO&AUTO DIFRNTL WBC DRUG 27679 COMBINED COMBINED SCREEN 5 PHYSICIAN PHYSICIAN QUANTITAT S LA [place] [address] COMBINED COMBINED TESTOSTER 4 PHYSICIAN PHYSICIAN ONE TOTAL S LA S LA BLOOD 85238 COMBINED COMBINED COUNT 4 PHYSICIAN PHYSICIAN COMPLETE S LA S LA AUTO&AUTO DIFRNTL WBC COMPREHEN 58609 COMBINED COMBINED SIVE 4 PHYSICIAN PHYSICIAN METABOLIC S LA S LA PANEL DRUG 22396 COMBINED COMBINED SCREEN 4 PHYSICIAN PHYSICIAN QUANTITAT S LA [place] [address] COMBINED COMBINED PROSTATE 4 PHYSICIAN PHYSICIAN SPECIFIC S LA S LA ANTIGEN TOTAL LIPID 72606 COMBINED COMBINED PANEL 4 PHYSICIAN PHYSICIAN S LA S LA RADEX 53794 [facility] HOSPITAL MINIMUM 3 VIEWS RADEX 27331 [place] [facility] AN[place] WRIST 4 MEDICAL COMPLETE SERV MINIMUM 3 FOUNDATIO VIEWS N RADEX 71013 [place] [facility] FOREARM 2 4 MEDICAL JACOBY VIEWS SERV FOUNDATIO RADEX 63295 [facility] MEDICAL Y JUS COMPLETE SERV MINIMUM 3 FOUNDATIO VIEWS N GROUND A0425 [facility] [place] [address] [place] [facility] MAXILLOFA 4 MEDICAL EDW CIAL W/[place] [address] [place] [facility] ANGIOGRAP 4 MEDICAL EDW HY HEAD SERV W/CONTRAS FOUNDATIO T/NONCONT N RAST [place] LUMBAR 41828 [place] SPINE 4 MEDICAL JACOBY W/O SERV CONTRAST FOUNDATIO MATERIAL RADIOLOGI 91088 [place] C 4 MEDICAL JACOBY EXAMINATI SERV ON PELVIS FOUNDATIO 1/[address] [place] [address] [place] ABDOMEN & 4 MEDICAL JACOBY PELVIS SERV W/CONTRAS FOUNDATIO T MATERIAL AMB A0427 [facility] SERVICE [address] [place] [address] EMERGENCY EMS EMS TRANSPORT LEVEL 1 RADIOLOGI 49892 [place] C 4 MEDICAL JACOBY EXAMINATI SERV ON CHEST [place] [address] [place] [facility] THORACIC 4 MEDICAL JACOBY SPINE W/[place] [address] [place] [facility] ANGIOGRAP 4 MEDICAL EDW HY NECK SERV W/CONTRAS [place] [address] [place] ANGIOGRAP 4 MEDICAL JACOBY HY CHEST SERV W/CONTR[place] [address] [place] CERVICAL 4 MEDICAL JACOBY SPINE W/O SERV CONTRAST FOUNDATIO MATERIAL RADEX 55570 [place] [facility] ELBOW 4 MEDICAL JACOBY COMPLETE SERV MINIMUM 3 FOUNDATIO VIEWS RADEX 26774 [place] [facility] HAND 4 MEDICAL JACOBY MINIMUM 3 SERV VIEWS FOUNDATIO Encounters Encounter Start End Date Code Location Performer Type Date [facility] V[facility] - 7 7 [facility]OS[facility] OUTPATIEN INC T OFFICE 83019 [facility] 7 7 [facility] T VISIT INTERNAL 25 MED MINUTES OFFICE 02439 [facility] OUT[facility]IEN 6 6 [facility] TORSTEN T VISIT INTERNAL 25 MED MINUTES HOSPITAL [facility] - 6 6 [facility] OUTPATIEN INC T OFFICE 18211 ELISSA DUFF OUTPATIEN 6 6 MD CULLEN, T [facility] PSC MINUTES OFFICE 85257 [facility] OUTPATIEN 6 6 MEM HOS[facility] T NEW 10 INC MINUTES OFFICE 04351 [facility] OUTPATIEN 6 6 [facility] TORSTEN T VISIT INTERNAL 25 MED MINUTES HOSPITAL VIVIANA - 6 6 [facility] H[facility] OUTPATIEN INC T OFFICE 81682 [facility] OUT[facility]IEN 5 5 [facility] TORSTEN T VISIT INTERNAL 15 MED MINUTES OFFICE 09533 [facility] OUT[facility]IEN 5 5 [facility] TORSTEN T VISIT INTERNAL 15 MED MINUTES OFFICE 93412 [facility] OUT[facility]IEN 4 4 [facility] TORSTEN T VISIT INTERNAL 25 MED MIN[address]ES OFF[address] 64373 [facility] 4 4 Y T VISIT HOSPITAL 15 MINUTES HOSPITAL UNIVERSIT - 4 4 Y [facility] T [facility] UNIVERSIT - 4 4 Y [facility] T OFFICE 28442 [facility] 4 4 Y T VISIT HOSPITAL 10 MINUTES EMERGENCY 94208 PA[facility] ECKERLINE 4 [address] [facility] T VISIT FOUNDATIO HIGH/URGE N NT SEVERITY
--- OUTSIDE RECORDS SUMMARY | 2017-01-17 08:07 | External Medical Summary Rpt ---
Demographics Preferred Language Barbadian Marital Status Unknown Pentecostal Affiliation Unknown Race Unknown Ethnic Group Unknown Author Author , Organization [employer] Address Unknown Phone Unavailable Purpose Continuity of Care Document - through 2016 Immunization No patient found.
[2017-01-17 08:09] LABS: HEMOGLOBIN 15.3 g/dL (14.1-18.0); LYMPH # 0.9 K/mm3 (0.7-4.5); LYMPH % 7.1 % (10-50)
--- NOTE | 2017-01-17 08:19 | Emergency Room Report ---
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 N Clinical Suspician of Infection? N Mental Status: 1 - Regular (Normal Baseline) Sepsis Risk:Low Sepsis Risk Have you (or family members/close friends) recently traveled outside the [place]? N If Yes, where/when: Have you had exposure to infectious disease within the past month? TB? Other? Specify: Comment The patient arrives by ambulance complaining of RIGHT foot pain. He has chronic pain in the RIGHT foot, previous trauma and surgery. He says he was supposed to have surgery later this week by Dr. Fierro to remove a stapling calcium deposit. Yesterday at about dinnertime the pain began getting much more severe and he is having trouble bearing weight on it. He is on oxycodone 30 mg at home and this was not controlling the pain. He is red on exam, he says it is not normally that way. He denies having fever or shaking chills. ALLERGIES Coded Allergies: codeine (01/17/17) Home Medications Active Scripts Phenytoin Sodium (Dilantin 100MG CAP) 100 MG PO Q6 #60 CAP Prov: 07/04/12 Reported Medications OXYCODONE HCL (Oxycodone Hydrochloride) 60 MG PO Q6H Diazepam (Valium 10MG) 10 MG PO BID Atorvastatin Calcium (Lipitor 10MG) (Unknown Dose) PO QHS Ibuprofen (Advil) 800 MG PO TID History Medical History General CAD? No Angina: No OR: No Hypertension? No Hyperlipidemia? Yes CHF? No DVT? No PE? No COPD? Yes Asthma? No Anemia? No GERD? No Gastric ulcers? No GI Bleed? No Hernia? No Thyroid Problems? No Hypothyroidism? No CVA? No Seizures? No Diabetes? No Renal Insuffiency? No End Stage Renal Disease? No UTI? No Stones? No BPH? No GB Disease: No Nephritic Syndrome? No Asplenia? No Hepatitis? No Sickle Cell Disease? No Arthritis? No Migraines? No Cataracts? No Glaucoma? No MRSA? No HIV? No TB? No Anxiety? Yes Depression? No Cancer? No More? Yes Additional hx: HX OF THC AND COCAINE USE Immunization Hx DT/Tetanus UNKNOWN Surgical Hx Previous Surgery?Y RIGHT LEG RIGHT HEEL Social History Smoking Hx Smoker: Current Every Day Smoker Tobacco: Yes Type Cigarettes Packs/day < 1 Pack Alcohol Alcohol: No Review of Systems All Other Systems Reviewed and Negative Constitutional denies fever Musculoskeletal see HPI Psychiatric/Neurological denies numbness, denies weakness Physical Exam Vital Signs Vital Signs Date Time Temp Pulse Resp B/P Pulse O2 O2 Flow FiO2 Ox Delivery Rate 01/17 1115 98.8 69 20 110/62 100 01/17 1037 98.8 69 20 110/62 100 01/17 0949 98.4 72 22 130/77 100 01/17 0856 98.4 78 22 140/66 100 01/17 0852 22 01/17 0747 98.4 74 20 148/74 100 General Appearance normal appearance Respiratory Status No: respiratory distress. Cardiovascular regular rate/rhythm, normal peripheral pulses Extremities 3 cm diameter subcutaneous mass RIGHT lateral midfoot. Exquisitely tender. There appears to be a small biggs pustule on the superior aspect of the mass. Surrounding erythema that extends approximately 10-15 cm diameter. Normal pulses, capillary refill, sensation, movement of toes. Neurologic no motor/sensory deficits Medical Decision Making LABS/Meds/Orders Pt receiving controlled substance in ED? Yes Arian was queried for this patient? Yes Reference #: [id number] Comment 25 rxs. last opiate rx 180 oxycodone 30mg on 01/07/17. Results/Orders Laboratory Tests 01/17/17 0758: Sodium 137, Potassium 3.9, Chloride 100, Carbon Dioxide 27, BUN 9, Creatinine 1.1, Estimated Creat Clear 105, Estimated GFR (MDRD) 70, Glucose 157 H, Uric Acid 3.6, Calcium 8.9, Total Bilirubin 0.6, AST 10 L, ALT 21, Alkaline Phosphatase 113, Total Protein 7.8, Albumin 4.3, Globulin 3.5 H, Albumin/ Globulin Ratio 1.2, WBC 12.9 H, RBC 5.05, Hgb 15.3, Hct 44.6, MCV 88.3, RDW 13.5, Plt Count 268, MPV 6.1 L, Gran % 85.2 H, Gran # 11.0 H, Total Counted 100, Lymphocytes % 7.1 L, Monocytes % 7.0, Eosinophils % 0.2, Basophils % 0.6, Neutrophils 86 H, Lymphocytes (Manual) 8 L, Lymphocytes # 0.9, Monocytes ( Manual) 5, Monocytes # 0.9, Eosinophils # 0.0, Basophils # 0.1, Differential Comment FEW PLT CLUMPS NOTED., RBC/WBC/PLT Morphology NORMAL, Atypical Lymphocytes 1, Platelet Estimate NORMAL, PUBS MCHC 34.2, ESR 8, MCH 30.2 Current Medication Orders Sig/Destiny Start time Last Medication Dose Route Stop Time Status Admin Hydromorphone HCl 1 MG Q4HP PRN 01/17 1100 AC IV Nicotine 21 MG DAILYP PRN 01/17 1100 AC TD Ondansetron HCl 4 MG Q6HP PRN 01/17 1100 AC IV Sodium Chloride 1,000 ML .Q8H 01/17 1100 AC 01/17 IV 1159 Sodium Chloride 10 ML PRN PRN 01/17 1100 AC IV Hydromorphone HCl 0 .STK-MED ONE 01/17 0850 DCr .ROUTE Ondansetron HCl 0 .STK-MED ONE 01/17 0850 DC .ROUTE Hydromorphone HCl 1 MG ONCE ONE 01/17 0845 DCr 01/17 IV 01/17 0846 0852 Ondansetron HCl 4 MG ONCE ONE 01/17 0845 DC 01/17 IV 01/17 0846 0852 Sodium Chloride 1,000 ML .STK-MED ONE 01/17 0817 DC IV Sodium Chloride 1,000 ML .Q1H1M 01/17 0815 DC 01/17 IV 01/17 0915 0819 Sodium Chloride 10 ML PRN PRN 01/17 0800 AC IV 01/18 0758 Orders Procedure Date/time Status DIET-NOTHING BY MOUTH 01/17 L Active Decision to admit 01/17 1041 Active 12 LEAD EKG-DEREK (INITIAL) 01/17 0940 Active ELECTROCARDIOGRAM REQUEST 01/17 0940 Active CHEST-PORTABLE 01/17 0940 Active C-REACTIVE PROTEIN 01/17 0915 Complete IV SALINE LOCK 01/17 0758 Active URIC ACID 01/17 0758 Complete SED RATE 01/17 0758 Complete DIFFERENTIAL-WBC 01/17 758 Complete CBC WITH AUTO DIFF 01/17 758 Complete CHEM 12 PROFILE 01/17 758 Complete ADMIT PATIENT 01/17 UNK Active VITAL SIGNS 01/17 UNK Active POM NURSE REECE HOSE ORDER 01/17 UNK Active IV SALINE LOCK 01/17 UNK Active CODE STATUS 01/17 UNK Active PATIENT ACTIVITY ORDER 01/17 UNK Active CM/EKG CM/EKG Comments EKG interpreted by Ortiz Knapp MD: Rhythm: sinus Rate: 70 [place]: normal Ectopy: none Conduction: normal ST Segment Changes: none T Wave Changes: none Q Waves: none No evidence of acute ischemia or injury Normal electrocardiogram XRAY/CT/US XRAY/CT/US XRAY chest, foot Comment Foot X-ray interpreted by Ortiz Knapp M.D.: protruding surgical staple, no change from recent x-ray X-ray interpreted by Ortiz Knapp M.D. No infiltrate, pneumothorax, pleural effusion, or wide mediastinum. Progress - 9:15 AM: Case discussed with Dr. Hernández. He will come to the emergency department to see the patient. 9:40 AM: The patient was seen by Dr. Hernández in the emergency department. He will admit to his service. Withhold antibiotics until after surgery so that it does not affect his culture results. He planned surgery today. Nothing by mouth. Consult Dr. Keith Departure Departure Disposition Still a Patient Clinical Impression Primary Impression: Abscess of foot Secondary Impressions: Cellulitis of foot Condition STABLE Referrals Johnnie Keith MD ([facility]) ED Critical Care Critical Care No at 1230
[2017-01-17 08:30] LABS: NEUTROPHILS 86 % (42-76)
--- NOTE | 2017-01-17 10:07 | RADIOLOGY REPORT PS360 ---
FOOT-RT-3 VIEWS HISTORY: Right foot pain RIGHT FOOT PAIN, WAS SUPPOSED TO HAVE SURGERY THIS WEEK ORDERING PHYSICIAN: Ortiz Knapp MD PATIENT AGE: 51 years COMPARISON: 12/09/2016, 05/31/2013 FINDINGS: There has been prior arthrodesis with a staple within the proximal cuboid and distal aspect of the calcaneus. There is a zone of lucency around the staple not significantly changed. This was mentioned previously and was reported as stable compared to 2013. Subchondral cystic changes are present at the calcaneal cuboid junction.. No acute fracture or dislocation. 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 Bone plate is present over the distal fibula. There is an old fracture of the distal tibia. IMPRESSION: 1. Overall no significant change status post arthrodesis at the calcaneal cuboid junction as described above with subchondral cystic changes at the staple site and mild zone of lucency around the arms of the staple as before which appear stable 2. Osteoarthritic change first metatarsophalangeal joint
--- OUTSIDE RECORDS SUMMARY | 2017-01-17 10:50 | External Medical Summary Rpt ---
Author Author , Organization [employer] Address Unknown Phone Unavailable Care Team Providers Care Gunnery/Ordnance Officer Name Role Phone ELISSA BERMAN MD, PSC, Unavailable Unavailable ELISSA BERMAN MD, PSC BESVANESSA LAZAR Unavailable Unavailable BESSON TORSTEN, BESSON Unavailable Unavailable TORSTEN TAMMY SAVI, TAMMY Unavailable Unavailable SAVI [facility] Un[facility] Unavailable [facility], [facility] Unavailable Unavailable [facility], [facility] ALAN, ALAN Unavailable Unavailable ECKERLINE RIGO, Unavailable Unavailable ECKERLINE JR RIGO ESCOTT EDW, ESCOTT Unavailable Unavailable EDW [facility] Un[facility] Unavailable [facility], [facility] Un[facility] Unavailable [facility], [facility] MOIZ JUAN ANTONIO, MOIZ JUAN ANTONIO Unavailable Unavailable [facility], [facility] Un[facility] Un[facility], [facility] Unavailable Unavailable INTERNAL MED, [facility] MAN JUS, Unavailable Unavailable MAN JUS NICKELS JACOBY, NICKELS Unavailable Unavailable JACOBY [facility] Unavailable Unavailable EMS, [facility] Unavailable Unavailable EMS, [facility], Unavailable Unavailable [facility] Purpose Continuity of Care Document - 04-02-2014 through 2016 Problems Code Diagnosis DOS Provider Status R2241 LOCALIZED 12-09-2016 [facility] RIGHT LOWER LIMB E785 HYPERLIPIDE 12-02-2016 [facility] UNSPECIFIED INTERNAL MED [id number] EPILEPSY 12-02-2016 [facility] UNS NOT VALLEY INTRACT [...] HOSP SPINE INC Z0283 ENCOUNTER 12-15-2015 [facility] BLOOD-ALCOH INC OL AND BLOOD-DRUG TEST 2572 OTHER 02-09-2015 [facility] TESTICULAR [facility] HYPOFUNCTIO LA N 2724 OTHER AND 02-09-2015 [facility] UNSPECIFIED PHYSICIANS LA HYPERLIPIDE IDA 16685 OTHER 02-09-2015 [facility] CONVULSIONS PHYSICIANS LA 7242 LUMBAGO 11-07-2014 [facility] INTERNAL MED 3384 CHRONIC 08-15-2014 [facility] [place] [facility] SYNDROME INTERNAL MED 89751 OTHER 05-23-2014 [facility]ORDERS SERV OF B[facility] AND [facility] CARTILAGE OTHER 7937 NONSPC ABN 05-23-2014 [facility] FINDNG RAD SERV & OTH EXM FOUNDATION MUS[place] L SYS 61028 UNSPECIFIED 05-23-2014 [facility] CLOSED SERV FRACTURE FOUNDATION LOWER END FOREARM V5489 OTHER 05-23-2014 [facility] AFTERCARE 64735 OTHER 04-25-2014 [facility] FRACTURES OF DISTAL END OF RADIUS V537 FITTING AND 04-25-2014 [facility] ADJUSTMENT SERV OF [facility] [place] ORTHOPEDIC DEVICE 55192 UNSPECIFIED 04-02-2014 [facility] EXOPHTHALMO FOUNDATION S 7384 ACQUIRED 04-02-2014 [facility] SPONDYLOLIS SERV THESIS [facility] 8020 NASAL 04-02-2014 [facility] B[facility]ES, SERV CLOSED FOUNDATION FRACTURE 8026 ORBITAL 04-02-2014 [facility]LOOR , SERV CLOSED FOUNDATION FRACTURE 8028 OTHER 04-02-2014 [facility] FACIAL SERV B[place]ES FOUNDATION CLOSED FRACTURE 94974 CLOSED 04-02-2014 [facility] FRACTURE OF SERV FOUNDATION UNSPECIFIED PART OF RADIUS 8702 LACERATION 04-02-2014 [facility] OF EYELID SERV INVOLVING FOUNDATION LACRIMAL PASSAGES 920 CONTUSION 04-02-2014 [facility] FACE SERV SCALP AND FOUNDATION NECK EXCEPT EYE 9599 INJURY 04-02-2014 [place] OTHER AND [place] UNSPECIFIED [facility] UNSPECIFIED SITE E8849 OTHER 04-02-2014 [facility] ACCIDENTAL SERV FALL FROM FOUNDATION ONE LEVEL TO ANOTHER V714 OBSERVATION 04-02-2014 [facility] FOLLOWING SERV OTHER FOUNDATION ACCIDENT L02.619 CUTANEOUS ABSCESS OF UNSPECIFIED FOOT L03.119 CELLULITIS OF UNSPECIFIED PART OF LIMB Medications Na ND Rx Da Fi Fi [...] 17 45 PH E 6 67 [place] MA OP CY 50 MC G SP [...] IN ti RO 70 8- 1- 00 IC ve FE 32 20 20 [...] 17 29 PH E 6 37 [place] MA OP CY 50 MC G SP [...] 17 29 PH E 6 37 [place] MA OP CY 50 MC G SP [...] 17 29 PH E 9 37 [place] MA OP CY 50 MC G SP [...] Procedure DOS Code Location Performer Comment RADEX 62557 [facility] FOOT 7 [facility] COMPLETE INC INC MINIMUM 3 VIEWS DRUG 45359 COMBINED COMBINED SCREEN 7 PHYSICIAN PHYSICIAN QUANTITAT S LA S LA TAMERA PHENYTOIN TOTAL COMPREHEN 24847 COMBINED COMBINED SIVE 7 PHYSICIAN PHYSICIAN METABOLIC S LA S LA PANEL LIPID 02642 COMBINED COMBINED PANEL 7 PHYSICIAN PHYSICIAN S LA S LA LIPID 12746 COMBINED TAMMY PANEL 6 PHYSICIAN SAVI S LA DRUG TST G0477 COMBINED TAMMY PRESUMP;C 6 PHYSICIAN SAVI PBL BEING S LA READ DC OPT OBV ONLY DRUG 75528 COMBINED TAMMY SCREEN 6 PHYSICIAN SAVI QUANTITAT S LA TAMERA PHENYTOIN TOTAL COMPREHEN 06723 COMBINED TAMMY SIVE 6 PHYSICIAN SAVI METABOLIC S LA PANEL DRUG TEST G0482 [facility] DEFINITV [address] [facility] [address] [facility] [address] ID INC INC METH P DAY 15-21 DR CL DRUG TST G0477 [facility] PRESUMP;C 6 MEM HOS[facility] MEM [facility]OSP PBL BEING INC INC READ DC OPT OBV ONLY LIPID 71472 COMBINED COMBINED PANEL 5 PHYSICIAN PHYSICIAN S LA S LA DRUG 61360 COMBINED COMBINED SCREEN 5 PHYSICIAN PHYSICIAN QUANTITAT S LA S LA TAMERA PHENYTOIN TOTAL BLOOD 44815 COMBINED COMBINED COUNT 5 PHYSICIAN PHYSICIAN COMPLETE S LA S LA AUTO&AUTO DIFRNTL WBC COMPREHEN 28316 COMBINED COMBINED SIVE 5 PHYSICIAN PHYSICIAN METABOLIC S LA S LA PANEL COMPREHEN 53933 COMBINED COMBINED SIVE 4 PHYSICIAN PHYSICIAN [place] [address] COMBINED COMBINED TESTOSTER 4 PHYSICIAN PHYSICIAN ONE TOTAL S LA S LA BLOOD 40158 COMBINED COMBINED COUNT 4 PHYSICIAN PHYSICIAN COMPLETE S LA S LA AUTO&AUTO DIFRNTL WBC DRUG 23618 COMBINED COMBINED SCREEN 4 PHYSICIAN PHYSICIAN QUANTITAT S LA S LA TAMERA PHENYTOIN TOTAL LIPID 51786 COMBINED COMBINED PANEL 4 [place] [address] COMBINED COMBINED PROSTATE 4 PHYSICIAN PHYSICIAN SPECIFIC S LA S LA ANTIGEN TOTAL RADEX 82208 [facility] WRIST 4 Y Y COMPLETE HOSPITAL HOSPITAL MINIMUM 3 VIEWS RADEX 64171 [place] [facility] JU[facility] ANTONIO WRIST 4 MEDICAL COMPLETE SERV MINIMUM 3 FOUNDATIO VIEWS N RADEX 80452 [place] FOREARM 2 4 MEDICAL JACOBY VIEWS SERV FOUNDAT[facility] RADEX 92349 [facility] WRIST 4 MEDICAL Y JUS COMPLETE SERV MINIMUM [address] [place] [address] [place] [facility] MAXILLOFA 4 MEDICAL EDW CIAL W/[place] [address] [place] [facility] ANGIOGRAP 4 MEDICAL EDW HY HEAD SERV W/CONTRAS FOUNDAT[facility] T/NONCONT N [facility]ST [facility] LUMBAR [address] [place] [facility] SPINE 4 MEDICAL JACOBY W/O SERV CONTRAST [facility]OUND[facility] MATERIAL RADIOLOGI 89047 [place] C 4 MEDICAL JACOBY EXAMINATI SERV ON PELVIS FOUNDATIO 1/[address] [place] [address] [place] ABDOMEN & 4 MEDICAL JACOBY PELVIS SERV W/CONTRAS FOUNDATIO T MATERIAL GROUND A0425 [facility] 4 [facility] PER [facility] [place] [address] [place] [facility] ANGIOGRAP 4 MEDICAL EDW HY NECK SERV W/CONTR[place] [address] [place] ANGIOGRAP 4 MEDICAL JACOBY HY CHEST SERV W/CONTRAS [place] [address] [place] CERVICAL 4 MEDICAL JACOBY SPINE W/O SERV CONTRAST [facility]OUNDAT[facility] MATERIAL RADEX 22371 [place] ELBOW 4 MEDICAL JACOBY COMPLETE SERV MINIMUM 3 FOUNDATIO VIEWS RADEX 02114 [place] HAND 4 MEDICAL JACOBY MINIMUM 3 SERV VIEWS F[facility]AT[place] RADIOLOGI 42057 [place] C 4 MEDICAL JACOBY EXAMINATI SERV ON [place] [address] [place] THORACIC 4 MEDICAL JACOBY SPINE W/O SERV CONTRAST FOUNDATIO MATERIAL AMB A0427 [facility] SERVICE 4 [facility] EMS TRANSPORT LEVEL 1 Encounters Encounter Start End Date Code Location Performer Type Date [facility] - 7 7 [facility] OUTPATIEN INC T OFFICE 54969 [facility] OUTPATIEN 7 7 VALLEY T VISIT INTERNAL 25 MED MINUTES OFFICE 03821 [facility] OUT[facility] 6 6 [facility]LEY TORSTEN T VISIT INTERNAL 25 MED MINUTES OFFICE 85194 ELISSA CIARRAFF OUTPATIEN 6 6 MD CULLEN, T NEW PSC MINUTES OFFICE 38551 [facility] 6 6 [facility] T NEW 10 INC MINUTES [facility]OS[facility] - 6 6 [facility] OUTPATIEN INC T OFFICE 90144 [facility] 6 6 [facility] TORSTEN T VISIT INTERNAL 25 MED MINUTES HOSPITAL [facility] - 6 6 [facility] OUTPATIEN INC T OFFICE 95172 [facility] 5 5 [facility] TORSTEN T VISIT INTERNAL 15 MED MINUTES OFFICE 77495 [facility] 5 5 [facility] TORSTEN T VISIT INTERNAL 15 MED MINUTES OFFICE 44259 [facility] VANESSA [facility] 4 4 VALLEY TORSTEN T VISIT INTERNAL 25 MED MINUTES OFFICE 77683 [facility] 4 4 Y T VISIT HOSPITAL 15 MINUTES [facility] UNIVERSIT - 4 4 Y [facility] T [facility] - 4 4 Y [facility] T OFFICE 15471 [facility] 4 4 Y T VISIT HOSPITAL 10 MINUTES EMERGENCY 46491 [place] [facility] 4 4 MEDICAL JR [facility] SERV T VISIT FOUNDATIO HIGH/URGE N NT SEVERITY
--- OUTSIDE RECORDS SUMMARY | 2017-01-17 10:50 | External Medical Summary Rpt ---
Author Author , Organization [employer] Address Unknown Phone Unavailable Care Team Providers Care Steel Shot Header Operator Name Role Phone ELISSA BERMAN MD, [...] Unavailable Unavailable INC, [facility] Unavailable Unavailable [facility], [facility] MOIZ JUAN ANTONIO, MOIZ JUAN ANTONIO Unavailable Unavailable [facility] Unavailable Unavailable INTER[facility] MED, [facility] MAN JUS[facility] Unavailable Unavailable MAN JUS NICKELS JACOBY, NICKELS Unavailable Unavailable JACOBY [facility] Unavailable Unavailable EMS, [facility] EMS [facility] Unavailable Unavailable EMS, [facility] EMS [facility], Unavailable Unavailable [facility] Purpose Continuity of Care Document - 04-02-2014 through 2016 Problems Code Diagnosis DOS Provider Status R2241 LOCALIZED 12-09-2016 [facility] MEDICAL MASS & LUMP IMAGING ASS RIGHT LOWER LIMB E785 HYPERLIPIDE 12-02-2016 [facility] UNSPECIFIED INTERNAL MED V38518 EPILEPSY 12-02-2016 [place] NOT [facility] INTRACT [...] SPINE INC Z0283 ENCOUNTER 12-15-2015 [facility] BLOOD-ALCOH INC OL AND BLOOD-DRUG TEST 2572 OTHER 02-09-2015 COMBINED TESTICULAR PHYSICIANS HYPOFUNCTIO LA N 2724 OTHER AND 02-09-2015 COMBINED UNSPECIFIED PHYSICIANS LA HYPERLIPIDE IDA 34287 OTHER 02-09-2015 COMBINED CONVULSIONS PHYSICIANS LA 7242 LUMBAGO 11-07-2014 [facility] INTERNAL MED 3384 CHRONIC 08-15-2014 [facility] [place] SYNDROME INTERNAL MED 81850 OTHER 05-23-2014 [facility] DISORDERS SERV OF [facility] CART[place] OTHER 7937 NONSPC ABN 05-23-2014 [facility] FINDNG RAD SERV & OTH EXM [place] 35526 UNSPECIFIED 05-23-2014 [facility] CLOSED SERV FRACTURE FOUNDATION LOWER END FOREARM V5489 OTHER 05-23-2014 [facility] AFTERCARE 84516 OTHER 04-25-2014 [facility] FRACTURES OF DISTAL END OF RADIUS V537 FITTING AND 04-25-2014 [place] [facility] ADJUSTMENT SERV OF [facility] ORTHOPEDIC DEVICE 29080 UNSPECIFIED 04-02-2014 [facility] SERV EXOPHTHALMO FOUNDATION S 7384 ACQUIRED 04-02-2014 [facility] SPONDYLOLIS SERV THESIS [facility]AT[facility] 8020 NASAL 04-02-2014 [facility], SERV CLOSED FOUNDATION FRACTURE 8026 ORBITAL 04-02-2014 [facility] FLOOR , SERV CLOSED FOUNDATION FRACTURE 8028 OTHER 04-02-2014 [facility] FACIAL SERV B[facility]OUNDATION CLOSED FRACTURE 95111 CLOSED 04-02-2014 [facility] FRACTURE OF SERV FOUNDATION UNSPECIFIED PART OF RADIUS 8702 LACERATION 04-02-2014 [facility]ICAL OF EYELID SERV INVOLVING FOUNDATION LACRIMAL PASSAGES 920 CONTUSION 04-02-2014 [facility] OF FACE SERV SCALP AND FOUNDATION NECK EXCEPT EYE 9599 INJURY 04-02-2014 [place] OTHER AND [place] UNSPECIFIED [facility] EMS UNSPECIFIED SITE E8849 OTHER 04-02-2014 [facility] ACCIDENTAL SERV FALL FROM FOUNDATION ONE LEVEL TO ANOTHER V714 OBSERVATION 04-02-2014 [place] [facility] FOLLOWING SERV OTHER FOUNDATION ACCIDENT L02.619 [...] Procedure DOS Code Location Performer Comment RADEX 28179 [facility] FOOT 7 [facility] COMPLETE INC INC MINIMUM 3 VIEWS DRUG 72161 COMBINED COMBINED SCREEN 7 PHYSICIAN PHYSICIAN QUANTITAT S LA S LA TAMERA PHENYTOIN TOTAL COMPREHEN 05202 COMBINED COMBINED SIVE 7 PHYSICIAN PHYSICIAN METABOLIC S LA S LA PANEL LIPID 20623 COMBINED COMBINED PANEL 7 PHYSICIAN PHYSICIAN S LA S LA LIPID 35533 COMBINED TAMMY PANEL 6 PHYSICIAN SAVI S LA DRUG TST G0477 COMBINED TAMMY PRESUMP;C 6 PHYSICIAN SAVI PBL BEING S LA READ DC OPT OBV ONLY DRUG 02358 COMBINED TAMMY SCREEN 6 PHYSICIAN SAVI QUANTITAT S LA TAMERA PHENYTOIN TOTAL COMPREHEN 57622 COMBINED TAMMY SIVE 6 PHYSICIAN SAVI METABOLIC S LA PANEL DRUG TEST G0482 [facility] DEFINITV [address] ID INC INC METH P DAY 15-21 DR CL DRUG TST G0477 [facility] MICHELLE PRESUMP;C 6 MEM HOSP MEM HOSP PBL BEING INC INC READ DC OPT OBV ONLY LIPID 97146 COMBINED COMBINED PANEL 5 PHYSICIAN PHYSICIAN S LA S LA DRUG 65286 COMBINED COMBINED SCREEN 5 PHYSICIAN PHYSICIAN QUANTITAT S LA S LA TAMERA PHENYTOIN TOTAL BLOOD 55950 COMBINED COMBINED COUNT 5 PHYSICIAN PHYSICIAN COMPLETE S LA S LA AUTO&AUTO DIFRNTL WBC COMPREHEN 82769 COMBINED COMBINED SIVE 5 PHYSICIAN PHYSICIAN METABOLIC S LA S LA PANEL COMPREHEN 53466 COMBINED COMBINED SIVE 4 PHYSICIAN PHYSIC[place] [address] COMBINED COMBINED TESTOSTER 4 PHYSICIAN PHYSICIAN ONE TOTAL S LA S LA BLOOD 42721 COMBINED COMBINED COUNT 4 PHYSICIAN PHYSICIAN COMPLETE S LA S LA AUTO&AUTO DIFRNTL WBC DRUG 93347 COMBINED COMBINED SCREEN 4 PHYSICIAN PHYSICIAN QUANTITAT S LA S LA TAMREA PHENYTOIN TOTAL LIPID 08122 COMBINED COMBINED PANEL 4 [place] [address] COMBINED COMBINED PROSTATE 4 PHYSICIAN PHYSICIAN SPECIFIC S LA S LA ANTIGEN TOTAL RADEX 63396 [facility] WRIST 4 Y Y [facility]PITAL HOSPITAL MINIMUM 3 VIEWS RADEX 04282 [place] MO[facility] JUAN ANTONIO WRIST 4 MEDICAL COMPLETE SERV MINIMUM 3 FOUNDAT[place] VIEWS N RADEX 85748 [place] FOREARM 2 4 MEDICAL JACOBY VIEWS SERV [facility] RADEX 84211 [facility] W[facility]ST 4 MEDICAL Y JUS COMPLETE SERV MINIMUM [address] [place] [address] [place] MAXILLOFA 4 MEDICAL EDW CIAL W/[place] [address] [place] ANGIOGRAP 4 MEDICAL EDW HY HEAD SERV W/CONTRAS FOUNDATIO T/NONCONT N RAST [place] LUMBAR 83474 [place] SPINE 4 MEDICAL JACOBY W/O SERV CONTRAST [facility]OUNDAT[place] MATERIAL RADIOLOGI 02153 [place] C 4 MEDICAL JACOBY EXAMINATI SERV ON PELVIS FOUNDATIO 1/[address] [place] [address] [place] ABDOMEN & 4 MEDICAL JACOBY PELVIS SERV W/CONTRAS FOUNDATIO T MATERIAL GROUND A0425 [facility] 4 [facility] PER [facility] [place] [address] [place] ANGIOGRAP 4 MEDICAL EDW HY NECK SERV W/CONTRAS FOUNDAT[place] T/[place] [address] [place] ANGIOGRAP 4 MEDICAL JACOBY HY CHEST SERV W/CONTRAS FOUNDAT[place] T/[place] [address] [place] CERVICAL 4 MEDICAL JACOBY SPINE W/O SERV CONTRAST [facility]OUNDAT[facility] MATERIAL RADEX 94928 [place] ELBOW 4 MEDICAL JACOBY COMPLETE SERV MINIMUM 3 FOUNDATIO VIEWS RADEX 17441 [place] HAND 4 MEDICAL JACOBY MINIMUM 3 SERV VIEWS FOUNDATIO RADIOLOGI 54870 [place] C 4 MEDICAL JACOBY EXAMINATI SERV ON CHE[place] [address] [place] THORACIC 4 MEDICAL JACOBY SPINE W/O SERV CONTRAST FOUNDATIO MATERIAL AMB A0427 [facility] SERVICE 4 [facility] EMERGENCY EMS EMS TRANSPORT LEVEL 1 Encounters Encounter Start End Date Code Location Performer Type Date [facility] - 7 7 [facility] H[facility] OUTPATIEN INC T OFFICE 81641 [place] [facility] 7 7 VALLEY T VISIT INTERNAL 25 MED MINUTES OFFICE 74465 [facility] OUT[facility]IEN 6 6 VALLEY TORSTEN T VISIT INTERNAL 25 MED MINUTES OFFICE 43098 ELISSA CIARRAFF OUTPATIEN 6 6 MD CULLEN, T NEW PSC MINUTES OFFICE 35966 [facility] 6 6 [facility] T NEW 10 INC MINUTES [facility]OSPITAL [facility] - 6 6 [facility] OUTPATIEN INC T OFFICE 73061 [place] [facility] OUT[facility] 6 6 [facility]LEY TORSTEN T VISIT INTERNAL 25 MED MINUTES HOSPITAL [facility] - 6 6 MEM HOSP OUTPATIEN INC T OFFICE 41150 [place] [facility] OUT[facility]IEN 5 5 [facility] TOR[place]EN T VISIT INTERNAL 15 MED MINUTES OFFICE 72205 [facility] OUTPATIEN 5 5 [facility] [place] T VISIT INTERNAL 15 MED MINUTES OFFICE 98859 [facility] 4 4 VALLEY TORSTEN T VISIT INTERNAL 25 MED MINUTES OFFICE 17813 [facility] 4 4 Y T VISIT HOSPITAL 15 MINUTES [facility] UNIVERSIT - 4 4 Y [facility] T [facility] - 4 4 Y [facility] T OFFICE 61544 [facility] 4 4 Y T VISIT HOSPITAL 10 MINUTES EMERGENCY 95282 [place] [facility]CKER[facility] 4 4 MEDICAL JR [facility] SERV T VISIT FOUNDATIO HIGH/URGE N NT SEVERITY
--- OUTSIDE RECORDS SUMMARY | 2017-01-17 10:51 | External Medical Summary Rpt ---
Author Author , Organization [employer] Address Unknown Phone Unavailable Care Team Providers Care Heavy Duty Press Operator Name Role Phone ELISSA BERMAN MD, [...] Unavailable Unavailable INC, [facility] Unavailable Unavailable IM[facility]ING [facility], [facility] MOIZ JUAN ANTONIO, MOIZ JUAN ANTONIO Unavailable [facility]available [facility] Un[facility], [place] [facility] Un[facility] Un[facility] MED, [facility] INTER[facility] MED [place] JUS, Unavailable Unavailable MAN JUS NICKELS JACOBY, NICKELS Unavailable Unavailable JACOBY [facility] Unavailable Unavailable EMS, [facility] EMS [facility] Unavailable [facility]available EMS, [facility], Unavailable Unavailable [facility] Purpose Continuity of Care Document - 04-02-2014 through 2016 Problems Code Diagnosis DOS Provider Status R2241 LOCALIZED 12-09-2016 [facility] MEDICAL MASS & LUMP IMAGING ASS RIGHT LOWER LIMB E785 HYPERLIPIDE 12-02-2016 [place] UNSPECIFIED INTERNAL MED [id number] EPILEPSY 12-02-2016 [place] INTRACT [...] SPINE INC Z0283 ENCOUNTER 12-15-2015 [facility] BLOOD-ALCOH INC OL AND BLOOD-DRUG TEST 2572 OTHER 02-09-2015 COMBINED TESTICULAR PHYSICIANS HYPOFUNCTIO LA N 2724 OTHER AND 02-09-2015 COMBINED UNSPECIFIED PHYSICIANS [place] HYPERLIPIDE IDA 28387 OTHER 02-09-2015 COMBINED CONVULSIONS PHYSICIANS LA 7242 LUMBAGO 11-07-2014 [facility] INTERNAL MED 3384 CHRONIC 08-15-2014 [place] SYNDROME INTERNAL MED 43305 OTHER 05-23-2014 [place] MEDICAL DISORDERS SERV OF [facility] C[place]IL[place] OTHER 7937 NONSPC ABN 05-23-2014 [facility] MEDICAL FINDNG RAD SERV & OTH EXM [place]OUNDATION [place] [address]12 UNSPECIFIED 05-23-2014 [place] MEDICAL CLOSED SERV FRACTURE FOUNDATION LOWER END FOREARM V5489 OTHER 05-23-2014 [facility] AFTERCARE 54035 OTHER 04-25-2014 [facility]PITAL FRACTURES OF DISTAL END OF RADIUS V537 FITTING AND 04-25-2014 [facility] MEDICAL ADJUSTMENT SERV OF FOUNDATION ORTHOPEDIC DEVICE 09570 UNSPECIFIED 04-02-2014 [facility] MEDICAL SERV EXOPHTHALMO FOUNDATION S 7384 ACQUIRED 04-02-2014 [facility] MEDICAL SPONDYLOLIS SERV THESIS FOUNDATIO 8020 NASAL 04-02-2014 [facility] MEDICAL BONES, SERV CLOSED FOUNDATION FRACTURE 8026 ORBITAL 04-02-2014 [facility] MEDICAL FLOOR , SERV CLOSED FOUNDATION FRACTURE 8028 OTHER 04-02-2014 [facility] MEDICAL FACIAL SERV BONES FOUNDATION CLOSED FRACTURE 78541 CLOSED 04-02-2014 [facility] MEDICAL FRACTURE OF SERV FOUNDATION UNSPECIFIED PART OF RADIUS 8702 LACERATION 04-02-2014 [facility] MEDICAL OF EYELID SERV INVOLVING FOUNDATION LACRIMAL PASSAGES 920 CONTUSION 04-02-2014 [facility] MEDICAL OF FACE SERV SCALP AND FOUNDATION NECK EXCEPT EYE 9599 INJURY 04-02-2014 [facility] [place] OTHER AND [place] UNSPECIFIED COUNTY EMS UNSPECIFIED SITE E8849 OTHER 04-02-2014 CT MEDICAL ACCIDENTAL SERV FALL FROM FOUNDATION ONE LEVEL TO ANOTHER V714 OBSERVATION 04-02-2014 CT MEDICAL FOLLOWING SERV OTHER FOUNDATION ACCIDENT Medications [...] 17 45 PH E 6 67 AR AL MA OP CY 50 MC G SP [...] 17 29 PH E 6 37 AR AL MA OP CY 50 MC G SP [...] 17 29 PH E 6 37 AR AL MA OP CY 50 MC G SP [...] 17 29 PH E 9 37 AR AL MA OP CY 50 MC G SP [...] Procedure DOS Code Location Performer Comment RADEX 43015 [facility] FOOT 7 [facility] COMPLETE INC INC MINIMUM 3 VIEWS COMPREHEN 55724 COMBINED COMBINED SIVE 7 PHYSICIAN PHYSICIAN METABOLIC S LA S LA PANEL LIPID 12171 COMBINED COMBINED PANEL 7 PHYSICIAN PHYSICIAN S LA S LA DRUG 49995 COMBINED COMBINED SCREEN 7 PHYSICIAN PHYSICIAN QUANTITAT S LA S LA TAMERA PHENYTOIN TOTAL LIPID 42543 COMBINED TAMMY PANEL 6 PHYSICIAN SAVI S LA COMPREHEN 13736 COMBINED TAMMY SIVE 6 PHYSICIAN SAVI METABOLIC S LA PANEL DRUG 79865 COMBINED TAMMY SCREEN 6 PHYSICIAN SAVI QUANTITAT S LA TAMERA PHENYTOIN TOTAL DRUG TST G0477 COMBINED TAMMY PRESUMP;C 6 PHYSICIAN SAVI PBL BEING S LA READ DC OPT OBV ONLY DRUG TST G0477 [facility] PRESUMP;C 6 MEM HOSP MEM HOSP PBL BEING INC INC READ DC OPT OBV ONLY DRUG TEST G0482 [facility] DEFINITV [address] ID INC INC METH P DAY 15-21 DR CL COMPREHEN 01684 COMBINED COMBINED SIVE 5 PHYSICIAN PHYSICIAN METABOLIC S LA S LA PANEL DRUG 45949 COMBINED COMBINED SCREEN 5 PHYSICIAN PHYSICIAN QUANTITAT S LA S LA TAMERA PHENYTOIN TOTAL BLOOD 16593 COMBINED COMBINED COUNT 5 PHYSICIAN PHYSICIAN COMPLETE S LA S LA AUTO&AUTO DIFRNTL WBC LIPID 00114 COMBINED COMBINED PANEL 5 PHYSICIAN PHYSICIAN S LA S LA LIPID 80073 COMBINED COMBINED PANEL 4 [place]YS[place] [address] COMBINED COMBINED TESTOSTER 4 PHYSICIAN PHYSICIAN ONE TOTAL S LA S LA BLOOD 41753 COMBINED COMBINED COUNT 4 PHYSICIAN PHYSICIAN COMPLETE S LA S LA AUTO&AUTO DIFRNTL WBC DRUG 09295 COMBINED COMBINED SCREEN 4 PHYSICIAN PHYSICIAN QUANTITAT S LA S LA TAMERA PHENYTOIN TOTAL COMPREHEN 22969 COMBINED COMBINED SIVE 4 PHYSICIAN PHYSIC[place] [address] COMBINED COMBINED PROSTATE 4 PHYSICIAN PHYSICIAN SPECIFIC S LA S LA ANTIGEN TOTAL RADEX 88793 [facility] HOSPITAL MINIMUM 3 VIEWS RADEX 18857 [place] [facility] WRIST 4 MEDICAL COMPLETE SERV MINIMUM 3 FOUNDATIO VIEWS N RADEX 24309 [facility] W[facility]ST 4 MEDICAL Y JUS COMPLETE SERV MINIMUM 3 F[place]ATIO VIEWS N RADEX 83633 [place] FOR[place] 2 4 [place] [address] [place] ANGIOGRAP 4 MEDICAL EDW HY NECK SERV W/CONTRAS [place]AT[place] T/[place] [address] [place] ANGIOGRAP 4 MEDICAL JACOBY HY CHEST SERV W/CONTRAS FOUNDAT[place] T/[place] [address] [place] CERVICAL 4 MEDICAL JACOBY SPINE W/O SERV CONTRAST [facility]OUNDATIO MATERIAL RADEX 59629 [place] ELBOW 4 MEDICAL JACOBY COMPLETE SERV MINIMUM 3 F[place]ATIO VIEWS RADEX 75180 [place] HAND 4 MEDICAL JACOBY MINIMUM [address] [place] [address] [place] MAXILLOFA 4 MEDICAL EDW CIAL W/[place] [address] [place] ANGIOGRAP 4 MEDICAL EDW HY HEAD SERV W/CONTRAS FOUNDAT[facility] T/NONCONT N [place] LUMBAR 51914 [place] SPINE 4 MEDICAL JACOBY W/O SERV CONTRAST FOUNDATIO MATERIAL RADIOLOGI 22247 [place] C 4 MEDICAL JACOBY EXAMINATI SERV ON PELVIS FOUNDATIO 1/2 VIEWS AMB A0427 [facility] SERVICE 4 [facility] EMERGENCY EMS EMS TRANSPORT LEVEL 1 RADIOLOGI 19052 [place] C 4 MEDICAL JACOBY EXAMINATI SERV ON CHEST [place] [address] [place] THORACIC 4 MEDICAL JACOBY SPINE W/[place] [address] [place] ABDOMEN & 4 MEDICAL JACOBY PELVIS SERV W/CONTRAS FOUNDATIO T MATERIAL GROUND A0425 [facility] STATUTE EMS EMS [place] Encounters Encounter Start End Date Code Location Performer Type Date HOSPITAL [facility] - 7 7 [facility] OUTPATIEN INC T OFFICE 04658 [facility] 7 7 [facility] T VISIT INTERNAL 25 MED MINUTES OFFICE 73981 [facility] 6 6 [facility] TOR[place]EN T VISIT INTERNAL 25 MED MINUTES OFFICE 30955 ELISSAKHUSHI LAFLEURFF OUTPATIEN 6 6 MD CULLEN, T NEW PSC MINUTES HOSPITAL [facility] - 6 6 [facility] OUTPATIEN INC T OFFICE 56237 [facility] 6 6 [facility] T NEW INC MINUTES OFFICE 49503 [facility] 6 6 [facility] TORST[place] T VISIT INTERNAL 25 MED MINUTES HOSPITAL V[facility] - 6 6 [facility] OUTPATIEN INC T OFFICE 47564 [facility] 5 5 [facility] [place]OR[place] T VISIT INTERNAL 15 MED MINUTES OFFICE 34259 [facility] OUT[facility] 5 5 [facility] [place] T VISIT INTERNAL 15 MED MINUTES OFFICE 15899 [facility] 4 4 [facility] [place] T VISIT INTERNAL 25 MED MINUTES [facility] 36[facility] 15 MINUTES OFFICE 96486 [facility] 10 MINUTES HOSPITAL UNIVERSIT - 4 4 Y [facility] H[facility]PITAL T EMERGENCY [address] [facility] [address] [facility] DEPARTMEN SERV T VISIT FOUNDATIO HIGH/URGE N NT SEVERITY
--- OUTSIDE RECORDS SUMMARY | 2017-01-17 10:51 | External Medical Summary Rpt ---
Author Author , Organization [employer] Address Unknown Phone Unavailable Care Team Providers Care Field Return Repairer Name Role Phone ELISSA BERMAN MD, PSC, [...] Unavailable Unavailable INC, [facility] Unavailable Unavailable [facility], [facility] MOIZ JUAN ANTONIO, MOIZ JUAN ANTONIO Unavailable [facility]available [facility] Un[facility], [facility] Un[facility], [facility] Unavailable Unavailable INTERNAL MED, [facility] [place] [facility], Unavailable Unavailable MAN JUS NICKELS JACOBY, NICKELS Unavailable Unavailable [facility] Unavailable Unavailable EMS, [facility] Unavailable Unavailable EMS, [facility], Unavailable Unavailable [facility] Purpose Continuity of Care Document - 04-02-2014 through 2016 Problems Code Diagnosis DOS Provider Status R2241 LOCALIZED 12-09-2016 [facility] MEDICAL [place] [facility] [place] IMAG[facility] ASS RIGHT LOWER LIMB E785 HYPERLIPIDE 12-02-2016 [facility] UNSPECIFIED INTERNAL MED [id number] EPILEPSY 12-02-2016 [facility] UNS NOT [facility] INTRACT [...] SPINE INC Z0283 ENCOUNTER 12-15-2015 [facility] BLOOD-ALCOH INC OL AND BLOOD-DRUG TEST 2572 OTHER 02-09-2015 [facility] TESTICULAR PHYSICIANS HYPOFUNCTIO LA N 2724 OTHER AND 02-09-2015 COMBINED UNSPECIFIED PHYSICIANS LA HYPERLIPIDE IDA 36335 OTHER 02-09-2015 [facility] CONVULSIONS PHYSICIANS LA 7242 LUMBAGO 11-07-2014 [facility] INTERNAL MED 3384 CHRONIC 08-15-2014 [facility] [facility] SYNDROME INTERNAL MED 72878 OTHER 05-23-2014 [facility] SERV OF B[facility] AND [facility] CARTILAGE OTHER 7937 NONSPC ABN 05-23-2014 [facility] SERV & OTH EXM [facility] [place] L SYS 13873 UNSPECIFIED 05-23-2014 [place] [facility] FRACTURE F[facility] LOWER END FOREARM V5489 OTHER 05-23-[address] [facility] AFTERCARE 01172 OTHER 04-25-2014 [facility] FRACTURES OF DISTAL END OF RADIUS V537 FITTING AND 04-25-2014 [place] [facility] OF [facility] ORTHOPEDIC DEVICE 75093 UNSPECIFIED 04-02-2014 [facility] EXOPHTHALMO [facility] S 7384 ACQUIRED 04-02-2014 [facility] SPONDYLOLIS SERV THESIS [facility] 8020 NASAL 04-02-2014 [facility] [place], SERV CLOSED [facility] FRACTURE 8026 ORBITAL 04-02-2014 [place] [facility] , SERV CLOSED [facility] FRACTURE 8028 OTHER 04-02-2014 [place] [facility] FACIAL [facility] [place] [facility] CLOSED FRACTURE 57614 CLOSED 04-02-2014 [facility]CTURE OF SERV [facility] UNSPECIFIED PART OF RADIUS 8702 LACERATION 04-02-2014 [place] [facility] OF EYELID SERV INVOLVING FOUNDATION LACRIMAL PASSAGES 920 CONTUSION 04-02-2014 [place] [facility] FACE SERV SCALP AND F[facility] NECK EXCEPT EYE 9599 INJURY 04-02-2014 [place] OTHER AND [place] UNSPECIFIED [facility] UNSPECIFIED SITE E8849 OTHER 04-02-2014 [place] [facility] ACC[facility]AL [facility] FALL FROM FOUNDATION ONE LEVEL TO ANOTHER V714 OBSERVATION 04-02-2014 [place] [facility] FOLLOWING SERV OTHER F[facility] ACCIDENT Medications [...] 17 45 PH E 6 67 AR ND MA OP CY 50 MC G SP [...] 17 29 PH E 6 37 AR ND MA OP CY 50 MC G SP [...] 17 29 PH E 6 37 AR ND MA OP CY 50 MC G SP [...] 17 29 PH E 9 37 AR ND MA OP CY 50 MC G SP [...] Procedure DOS Code Location Performer Comment RADEX 99549 [facility] COMPLETE INC INC MINIMUM 3 VIEWS COMPREHEN 94542 COMBINED COMBINED SIVE 7 PHYSICIAN PHYSICIAN METABOLIC S LA S LA PANEL LIPID 81064 COMBINED COMBINED PANEL 7 PHYSICIAN PHYSICIAN S LA S LA DRUG 87114 COMBINED COMBINED SCREEN 7 PHYSICIAN PHYSICIAN QUANTITAT S LA S LA TAMERA PHENYTOIN TOTAL LIPID 11121 COMBINED TAMMY PANEL 6 PHYSICIAN SAVI S LA COMPREHEN 64755 COMBINED TAMMY SIVE 6 PHYSICIAN SAIV METABOLIC S LA PANEL DRUG 98353 COMBINED TAMMY SCREEN 6 PHYSICIAN SAVI QUANTITAT [...] METH P DAY 15-21 DR CL COMPREHEN 77724 COMBINED COMBINED SIVE 5 PHYSICIAN PHYSICIAN METABOLIC S LA S LA PANEL DRUG 79559 COMBINED COMBINED SCREEN 5 PHYSICIAN PHYSICIAN QUANTITAT S LA S LA TAMERA PHENYTOIN TOTAL BLOOD 45152 COMBINED COMBINED COUNT 5 PHYSICIAN PHYSICIAN COMPLETE S LA S LA AUTO&AUTO DIFRNTL WBC LIPID 38016 COMBINED COMBINED PANEL 5 PHYSICIAN PHYSICIAN S LA S LA LIPID 61246 COMBINED COMBINED PANEL 4 [place] [address] COMBINED COMBINED TESTOSTER 4 PHYSICIAN PHYSICIAN ONE TOTAL S LA S LA BLOOD 25968 COMBINED COMBINED COUNT 4 PHYSICIAN PHYSICIAN COMPLETE S LA S LA AUTO&AUTO DIFRNTL WBC DRUG 79818 COMBINED COMBINED SCREEN 4 PHYSICIAN PHYSICIAN QUANTITAT S LA S LA TAMERA PHENYTOIN TOTAL COMPREHEN 22850 COMBINED COMBINED SIVE 4 PHYSICIAN PHYSICIAN [place] [address] COMBINED COMBINED PROSTATE 4 PHYSICIAN PHYSICIAN SPECIFIC S LA S LA ANTIGEN TOTAL RADEX 08090 [facility] HOSPITAL MINIMUM 3 VIEWS RADEX 74286 [place] [facility] AN[facility] WRIST 4 MEDICAL COMPLETE SERV MINIMUM 3 FOUNDATIO VIEWS N RADEX [address] [place] [facility] WRIST 4 MEDICAL Y JUS COMPLETE SERV MINIMUM 3 FOUNDATIO VIEWS N RADEX 29950 [place] [facility] FOR[facility] 2 4 [place] [address] [place] ANGIOGRAP 4 MEDICAL EDW HY NECK SERV W/CONTRAS FOUNDAT[place] T/[place] [address] [place] ANGIOGRAP 4 MEDICAL JACOBY HY CHEST SERV W/[place] [address] [place] CERVICAL 4 MEDICAL JACOBY SPINE W/O SERV CONTRAST [facility] MATERIAL RADEX 23439 [place] [facility] ELBOW 4 MEDICAL JACOBY COMPLETE SERV MINIMUM 3 [place]AT[place] VIEWS RADEX 89030 [place] HAND 4 MEDICAL [place] MINIMUM [address] [place] [address] [place] MAXILLOFA 4 MEDICAL EDW CIAL W/[place] [address] [place] ANGIOGRAP 4 MEDICAL EDW HY HEAD SERV W/CONTRAS [facility]AT[facility] T/NONCONT N [facility] [facility] LUMBAR [address] [place] [facility] SPINE 4 MEDICAL JACOBY W/O SERV CONTRAST [facility] MATERIAL RADIOLOGI 87777 [place] C 4 MEDICAL JACOBY EXAMINATI SERV ON PELVIS FOUNDATIO 1/2 VIEWS AMB A0427 [facility] SERVICE 4 [facility] EMERGENC[facility] EMS EMS TRANSPORT LEVEL 1 RADIOLOGI 11921 [place] C 4 MEDICAL [place] EXAMINATI SERV ON [place] [address] [place] THORACIC 4 MEDICAL JACOBY SPINE W/[place] [address] [place] ABDOMEN & 4 MEDICAL JACOBY PELVIS SERV W/CONTRAS FOUNDATIO T MATERIAL GROUND A0425 [facility] STATUTE EMS EMS MILE Encounters Encounter Start End Date Code Location Performer Type Date [facility]OSPITAL [facility] - 7 7 [facility] OUTPATIEN INC T OFFICE 31517 [facility] 7 7 VALLEY T VISIT INTERNAL 25 MED MINUTES OFFICE 16094 [facility] OUT[facility] 6 6 VALLEY TORSTEN T VISIT INTERNAL 25 MED MINUTES OFFICE 35212 ELISSAKHUSHI LAFLEURFF OUTPATIEN 6 6 MD CULLEN, T NEW PSC MINUTES [facility]OSPITAL [facility] - 6 6 [facility] OUTPATIEN INC T OFFICE 95054 [facility] 6 6 MEM HOS[facility] T NEW INC MINUTES OFFICE 62624 [facility] 6 6 VALLEY TORSTEN T VISIT INTERNAL 25 MED MINUTES [facility]OSPITAL [facility] - 6 6 MEM [facility] OUTPATIEN INC T OFFICE 99327 [facility] 5 5 VALLEY TORSTEN T VISIT INTERNAL 15 MED MINUTES OFFICE 41787 [facility] 5 5 [facility] TORSTEN T VISIT INTERNAL 15 MED MINUTES OFFICE 21426 [facility] OUT[facility] 4 4 VALLEY TORSTEN T VISIT INTERNAL 25 MED MINUTES [facility]OSP[facility] 4 [facility] 90502 [facility] Y T VIS[facility] HOSP[facility] 15 MINUTES OFFICE 43632 [facility] 4 4 Y T VISIT HOSPITAL 10 MINUTES HOSPITAL [facility]IT - 4 4 Y [facility] HOSPITAL T EMERGENCY 321[address] [place] [facility] [address] [facility] DEPARTMEN SERV T VISIT FOUNDATIO HIGH/URGE N NT SEVERITY
--- OUTSIDE RECORDS SUMMARY | 2017-01-17 10:52 | External Medical Summary Rpt ---
Demographics Preferred Language Yemeni Marital Status Unknown Yarsani Affiliation Unknown Race Unknown Ethnic Group Unknown Author Author , Organization [employer] Address Unknown Phone Unavailable Purpose Continuity of Care Document - through 2016 Immunization No patient found.
--- OUTSIDE RECORDS SUMMARY | 2017-01-17 10:52 | External Medical Summary Rpt ---
Demographics Preferred Language Cook Islander Marital Status Unknown Yarsani Affiliation Unknown Race Unknown Ethnic Group Unknown Author Author , Organization [employer] Address Unknown Phone Unavailable Purpose Continuity of Care Document - through 2016 Immunization No patient found.
--- OUTSIDE RECORDS SUMMARY | 2017-01-17 10:52 | External Medical Summary Rpt ---
Author Author EDGAR Yun, EDGAR Yun Organization [employer] Address Unknown Phone Unavailable
--- NOTE | 2017-01-17 13:26 | RADIOLOGY REPORT PS360 ---
CHEST-PORTABLE HISTORY: Current smoker pre op ORDERING PHYSICIAN: Ortiz Knapp MD PATIENT AGE: 51 years COMPARISON: None available FINDINGS: The cardiomediastinal silhouette and pulmonary vascularity are within normal limits. The lungs are clear without infiltrates, suspicious nodules, or pleural effusions. No acute bony abnormalities. IMPRESSION: No acute finding
--- NOTE | 2017-01-17 14:00 | CONSULT NOTE ---
Standard Demographics Patient Demo Date of Consultation: 01/17/17 Referring Provider: Reno Hernández MD Reason for Consultation: Right foot cellulitis PRIMARY DIAGNOSIS: ABCESS AND CELLULITUS OF THE RT FOOT Allergies: Coded Allergies: codeine (01/17/17) History of present illness: History of present illness: 51 yr old male, smoker, with history of pain in the right foot. Evidently he had an old trauma to that foot with surgical intervention and recently has developed deformity and increasing pain. Has seen orthopedics on an outpatient basis but this morning was having severe pain and was unable to ambulate on the right foot. He presented to the ED, had evidence of infectious process and was admitted to orthopedic service for surgical intervention. We were asked to consult for medical management. Past medical history: Family HX Diabetes No CAD No Hypertension No Hyperlipidemia Yes Cancer No TB No Immunization HX DT/Tetanus 1-4 Years Ago Pneumonia Never Had TB Test in last year No General CAD? No Angina: No MT: No Hypertension? No Hyperlipidemia? Yes CHF? No DVT? No PE? No COPD? Yes Asthma? No Anemia? No GERD? No Gastric ulcers? No GI Bleed? No Hernia? No Thyroid Problems? No Hypothyroidism? No CVA? No Seizures? No Diabetes? No Renal Insuffiency? No UTI? No Stones? No BPH? No GB Disease: No Nephritic Syndrome? No Asplenia? No Hepatitis? No Sickle Cell Disease? No Arthritis? No Migraines? No Cataracts? No Glaucoma? No MRSA? No HIV? No TB? No Anxiety? Yes Depression? No Cancer? No More? Yes Additional hx: HX OF THC AND COCAINE USE Past Surgical HX Previous Surgery?Y RIGHT LEG RIGHT HEEL Current home meds: Active Scripts Phenytoin Sodium (Dilantin 100MG CAP) 100 MG PO Q6 #60 CAP Prov: 07/04/12 Reported Medications OXYCODONE HCL (Oxycodone Hydrochloride) 60 MG PO Q6H Diazepam (Valium 10MG) 10 MG PO BID Atorvastatin Calcium (Lipitor 10MG) (Unknown Dose) PO QHS Ibuprofen (Advil) 800 MG PO TID Social Hx: Pt is a smoker Patient uses alcohol rarely Patien't marital status is Patient's support system is good Pt uses illicit drugs? No Standard Review of Systems General malaise, weakness. No: fever. Eyes No: no symptoms reported. Ears, Nose, Mouth, Throat No no symptoms reported Respiratory No: cough, shortness of breath. Cardiovascular No chest pain, No edema Gastrointestinal/Abdominal nausea, poor appetite Genitourinary No: no symptoms reported. Musculoskeletal see HPI. Skin see HPI. Neurological Yes: seizure disorder. Psychiatric Yes: anxious. Exam: Lab data for last 24 hours: Laboratory Tests 01/17/17 0758: Sodium 137, Potassium 3.9, Chloride 100, Carbon Dioxide 27, BUN 9, Creatinine 1.1, Estimated Creat Clear 105, Estimated GFR (MDRD) 70, Glucose 157 H, Uric Acid 3.6, Calcium 8.9, Total Bilirubin 0.6, AST 10 L, ALT 21, Alkaline Phosphatase 113, Total Protein 7.8, Albumin 4.3, Globulin 3.5 H, Albumin/ Globulin Ratio 1.2, WBC 12.9 H, RBC 5.05, Hgb 15.3, Hct 44.6, MCV 88.3, RDW 13.5, Plt Count 268, MPV 6.1 L, Gran % 85.2 H, Gran # 11.0 H, Total Counted 100, Lymphocytes % 7.1 L, Monocytes % 7.0, Eosinophils % 0.2, Basophils % 0.6, Neutrophils 86 H, Lymphocytes (Manual) 8 L, Lymphocytes # 0.9, Monocytes ( Manual) 5, Monocytes # 0.9, Eosinophils # 0.0, Basophils # 0.1, Differential Comment FEW PLT CLUMPS NOTED., RBC/WBC/PLT Morphology NORMAL, Atypical Lymphocytes 1, Platelet Estimate NORMAL, PUBS MCHC 34.2, ESR 8, MCH 30.2 Microbiology 01/17 1435 BLOOD: Anaerobic Blood Culture - RECD 01/17 1435 BLOOD: Aerobic Blood Culture - RECD 01/17 143 BLOOD: Anaerobic Blood Culture - RECD 01/17 1435 BLOOD: Aerobic Blood Culture - RECD Admission vital signs: 1ST Vital Signs Result Date Time Pulse Ox 100 01/17 0747 B/P 148/74 01/17 0747 Temp 98.4 01/17 0747 Pulse 74 01/17 0747 Resp 20 01/17 0747 O2 Delivery ROOM AIR 01/17 1134 Additional information: Alert white male in moderate distress. Oriented x 3. Heart with RRR, lungs coarse but clear bilaterally. Poor dentition, mucous membranes mildly dry, PERRL. No periperal edema and able to move all extremities. Right foot with nodular deformity on the lateral aspect dorsum of the foot - this is erythematous, warm with a ring of surrounding erythema Plan: Problem List 1. Cellulitis of foot Assessment/Plan See note from Dr Hernández, plan is for surgical intervention. Blood cultures ordered. CXR clear on admission, recommend aggressive pulmonary toilet post- operatively for tobacco use history and also rec resume home medications when able for his hyperlipidemia and seizure disorder 2. Abscess of foot 3. Chronic pain syndrome 4. Chronic narcotic use 5. Tobacco use 6. Seizure disorder 7. Hyperlipidemia Plan: see above at 1713
--- NOTE | 2017-01-17 15:23 | HISTORY AND PHYSICAL REPORT ---
History and Physical History and physical History of present illness: Patient is a pleasant 51-year-old gentleman seen in the emergency department today for orthopedic consultation regarding his RIGHT foot pain and swelling. He presented to emergency department today with history of increasing pain since yesterday and difficulty weightbearing. No history of any fevers, chills or rigors. He says he has been having pain and swelling over the dorsoradial aspect of his RIGHT foot for the last few years. 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 No history of any distal tingling or numbness. I have seen him a few weeks ago in the office and he recommended removal of the hazel from his RIGHT foot. However, he did not want surgery at that time citing work commitments. Evaluation in the ER today including x-rays showed an abscess with surrounding cellulitis and a loose partially extruded orthopedics staple in his foot. Patient was admitted for the incisional drainage , removal of the loose implant and IV antibiotics. ALLERGIES Coded Allergies: codeine (01/17/17) Home Medications Active Scripts Phenytoin Sodium (Dilantin 100MG CAP) 100 MG PO Q6 #60 CAP Prov: 07/04/12 Reported Medications OXYCODONE HCL (Oxycodone Hydrochloride) 60 MG PO Q6H Diazepam (Valium 10MG) 10 MG PO BID Atorvastatin Calcium (Lipitor 10MG) (Unknown Dose) PO QHS Ibuprofen (Advil) 800 MG PO TID History Medical History General CAD? No Angina: No CT: No Hypertension? No Hyperlipidemia? Yes CHF? No DVT? No PE? No COPD? Yes Asthma? No Anemia? No GERD? No Gastric ulcers? No GI Bleed? No Hernia? No Thyroid Problems? No Hypothyroidism? No CVA? No Seizures? Yes Diabetes? No Renal Insuffiency? No End Stage Renal Disease? No UTI? No Stones? No BPH? No GB Disease: No Nephritic Syndrome? No Asplenia? No Hepatitis? No Sickle Cell Disease? No Arthritis? No Migraines? No Cataracts? No Glaucoma? No MRSA? No HIV? No TB? No Anxiety? Yes Depression? No Cancer? No More? Yes Additional hx: HX OF THC AND COCAINE USE Immunization Hx DT/Tetanus UNKNOWN Surgical Hx Previous Surgery?Y RIGHT LEG RIGHT HEEL Social History Smoking Hx Smoker: Current Every Day Smoker Tobacco: Yes Type Cigarettes Packs/day < 1 Pack Alcohol Alcohol: No Review of Systems All Other Systems Reviewed and Negative Constitutional denies fever Musculoskeletal see HPI Psychiatric/Neurological denies numbness, denies weakness Physical Exam Vital Signs Vital Signs Date Time Temp Pulse Resp B/P Pulse O2 O2 Flow FiO2 Ox Delivery Rate 01/17 1115 98.8 69 20 110/62 100 01/17 1037 98.8 69 20 110/62 100 01/17 0949 98.4 72 22 130/77 100 01/17 0856 98.4 78 22 140/66 100 01/17 0852 22 01/17 0747 98.4 74 20 148/74 100 General Appearance: normal appearance, mild distress ENT: Moist mucous membranes Neck: Soft and supple, trachea is central, no lymphadenopathy Respiratory: No acute respiratory distress. Lungs clear to auscultation bilaterally Cardiovascular: regular rate/rhythm, normal peripheral pulses Abdomen: Soft and nontender; bowel sounds heard over all 4 quadrants Neurologic: Alert and oriented 3, no motor/sensory deficits Mood and affect: Appropriate for this condition On examination of his RIGHT foot, there is a tender erythematous swelling, 3 cm x 2 cm over the dorsolateral aspect of the midfoot in the region of the calcaneocuboid joint. There is surrounding erythema and edema over the foot and ankle. He is very tender over and around the swelling. He has full range of movements. Distal neurovascular status is intact. Imaging: X-ray of his RIGHT foot reveals a previous staple insertion into the calcaneocuboid joint and the staple was partially extruded. There is evidence of soft tissue swelling over this area. No evidence of santo osteomyelitis. Laboratory Tests 01/17/17 0758: Sodium 137, Potassium 3.9, Chloride 100, Carbon Dioxide 27, BUN 9, Creatinine 1.1, Estimated Creat Clear 105, Estimated GFR (MDRD) 70, Glucose 157 H, Uric Acid 3.6, Calcium 8.9, Total Bilirubin 0.6, AST 10 L, ALT 21, Alkaline Phosphatase 113, Total Protein 7.8, Albumin 4.3, Globulin 3.5 H, Albumin/ Globulin Ratio 1.2, WBC 12.9 H, RBC 5.05, Hgb 15.3, Hct 44.6, MCV 88.3, RDW 13.5, Plt Count 268, MPV 6.1 L, Gran % 85.2 H, Gran # 11.0 H, Total Counted 100, Lymphocytes % 7.1 L, Monocytes % 7.0, Eosinophils % 0.2, Basophils % 0.6, Neutrophils 86 H, Lymphocytes (Manual) 8 L, Lymphocytes # 0.9, Monocytes ( Manual) 5, Monocytes # 0.9, Eosinophils # 0.0, Basophils # 0.1, Differential Comment FEW PLT CLUMPS NOTED., RBC/WBC/PLT Morphology NORMAL, Atypical Lymphocytes 1, Platelet Estimate NORMAL, PUBS MCHC 34.2, ESR 8, MCH 30.2 Microbiology 01/17 1435 BLOOD: Anaerobic Blood Culture - RECD 01/17 1435 BLOOD: Aerobic Blood Culture - RECD 01/17 1435 BLOOD: Anaerobic Blood Culture - RECD 01/17 1435 BLOOD: Aerobic Blood Culture - RECD Vital Signs Result Date Time Pulse Ox 100 01/17 0747 B/P 148/74 01/17 0747 Temp 98.4 01/17 0747 Pulse 74 01/17 0747 Resp 20 01/17 0747 O2 Delivery ROOM AIR 01/17 1134 Impression: 1. Infected, loose orthopedic implant (staple), RIGHT foot 2. Abscess, RIGHT foot 3. Cellulitis, RIGHT foot Plan:I reviewed the clinical and x-ray findings with the patient. I have discussed the diagnosis, natural history and management options in detail including both nonsurgical and surgical. As the staple is backing out and is not infected, causing pain and swelling I have recommended incision and drainage with removal of the staple and debridement. We have discussed the procedure, risks and benefits and alternatives. He is wished to proceed. The complications discussed include but are not limited to-infection, bleeding, injury to nerves tendons and blood vessels, pain, stiffness, incomplete recovery, incomplete relief of pain, likely need for further surgery and the possibility of anesthetic complications including stroke, heart attack and even . I have told him that we leave the skin and sutured at the end of the procedure for drainage of any pus or collection and let the wound heal by secondary intention. I have told him that he may need several procedures and prolonged antibiotic regime to clear the infection. All his questions were answered and he verbalized a good understanding. Well start IV vancomycin after obtaining the intraoperative cultures and then modify the antibiotic region depending on the culture results.
--- NOTE | 2017-01-17 15:44 | PHARMACY CLINIC NOTE ---
Patient Demographics Patient Demographics Admission date: 01/17/17 Date: 01/17/17 Time: 1544 Allergies Coded Allergies: codeine (01/17/17) HEIGHT- FT: 6 IN: 1.00 K.083 VTE General Information Labs: Laboratory Tests 01/17 0758 Hematology Hgb (14.1 - 18.0 g/dL) 15.3 Hct (42.0 - 52.0 %) 44.6 Plt Count (142 - 424 K/mm3) 268 Disclaimer The following section includes nursing documentation that has been pulled in for pharmacy review. Patient's VTE score: 3 Patient's VTE Risk: LOW RISK Clinical trial participant? No VTE prophylaxis NQF 0371 VTE prophylaxis ordered? Yes Type of prophylaxis/treatment: REECE at 9678
--- NOTE | 2017-01-17 21:00 | Anesthesia Record ---
Anesthesia Record Part II Discharge time: 2119 Destination: Second Floor PACU nurse assessment review? Yes Patient is: Awake, Nasal O2, Stable Anesthesia complications? No at 2100
--- NOTE | 2017-01-17 21:00 | Anesthesia Record ---
Anesthesia Record Part I Total IV fluids: 1000 EBL (ml): 50 Urine Output: 0 (NOT MEASURED) B/P: 117/88 % SaO2: 95 Pulse: 103 Resps: 28 Temp: 99.5 Patient is: Awake, Nasal O2, Stable Stable to PACU at: 0 at 2481
--- NOTE | 2017-01-17 22:13 | Operative Note ---
Procedure/Operative Record Date of Procedure: 01/17/17 Pre-op diagnosis: 1. Abscess, RIGHT foot 2. Infected, loose orthopedic implant (staple), RIGHT foot 3. Cellulitis, RIGHT foot Post-op diagnosis: 1. Abscess, RIGHT foot 2. Infected, loose orthopedic implant (staple), RIGHT foot 3. Cellulitis, RIGHT foot Procedure performed: 1. Incision and drainage of abscess, RIGHT foot 2. Removal of loose, infected orthopedic implant (staple), RIGHT foot Surgeon: TINY MIX MD Associate Professor Of Sociology(s): Kassi Gonzalez Anesthesia: General Indications: Patient is a 51-year-old male who had an orthopedic implant (staple) many years ago for what appears to be a calcaneocuboid fusion. Over the years the staple has backed out. He presented to emergency department today with increased pain over his RIGHT foot and increased swelling and redness. Evaluation confirmed an abscess over the RIGHT foot at the site of previous surgery and surrounding cellulitis over his RIGHT foot. On the x-ray the implant noted to be backing out and loose. Incision and drainage of the abscess was indicated along with removal of the implant to treat the infection, improve the pain and function. Findings: An abscess over the previous surgical site with about 5 mL of santo pus noted. The staple was loose and partially backed out. It easily came out and removed. There was cellulitis over the dorsum of the foot. Description of procedure: On the day of the procedure the patient was seen in the ER for an orthopedic consultation and was admitted to the hospital for incision and drainage and removal of the implant from his RIGHT foot. Antibiotics were held until cultures samples were obtained. The diagnosis and management options were discussed in detail including both nonsurgical and surgical. The surgical complications discussed including but not limited to- infection, bleeding, injury to nerves, blood vessels, tendons, failure to eradicate the infection, incomplete recovery, persistent pain, CRPS, DVT/PE, likely need for further surgery and anesthetic complications including stroke, heart attack and even . Patient wished to proceed with the surgical intervention. All his questions were answered and he verbalized a good understanding. The limb was appropriately marked. Consent form was reviewed and signed. Patient was brought to the operating room and placed supine on the operating table. All the bony prominences were appropriately padded. A general anesthesia was administered by the boat outboard engine mechanic. A well-padded tourniquet cuff was placed over the RIGHT thigh. The RIGHT lower extremity was prepped and draped in usual sterile fashion. A preprocedure timeout was performed as per protocol. The limb was elevated and tourniquet inflated to 300 mmHg. Please see nursing notes for tourniquet time. The previous surgical scar was reopened with drainage of santo pus. About 5 mL of pus drained. Aerobic and anaerobic culture swabs were taken. After taking the cultures samples, 1 g of IV vancomycin was started by the boat outboard engine mechanic. The staple was easily removed from the bone. All the adhesions were broken down and the abscess cavity, bony surfaces and staple holes were curetted out. The wound was thoroughly irrigated with normal saline. The tourniquet was released and hemostasis was obtained with diathermy. The incision was partially closed with interrupted 4-0 Ethilon sutures. The abscess cavity was packed with half inch iodoform gauze. Sterile dressings and pressure bandages were applied. Patient was then reversed from the anesthetic and transferred onto the bed. He was then safely transported to the postoperative recovery area in stable condition. He tolerated the procedure well and there were no immediate complications. The swab, needle and instrument counts were correct at the end of the procedure as per the scrub team. Postoperatively we will continue IV vancomycin and await culture results for any changes as needed. Patient was advised to keep the limb elevated and mobilize the toes. He can mobilize heel walking as tolerated. EBL (ml): 5 Implant: None Complications: None Specimens: Aerobic and anaerobic culture swabs from the wound at 3085
[2017-01-18] VITALS (13 sets, daily range): BP systolic 104–155; BP diastolic 56–92
[2017-01-18 07:00] LABS: LYMPH # 0.9 K/mm3 (0.7-4.5); LYMPH % 8.3 % (10-50)
--- NOTE | 2017-01-18 07:15 | PHARMACY CLINIC NOTE ---
Patient Demographics Patient Demographics Admission date: 01/17/17 Date: 01/18/17 Time: 0715 Allergies Coded Allergies: codeine (01/17/17) HEIGHT- FT: 6 IN: 1.00 K.083 VTE General Information Labs: Laboratory Tests 01/17 0758 Hematology Hgb (14.1 - 18.0 g/dL) 15.3 Hct (42.0 - 52.0 %) 44.6 Plt Count (142 - 424 K/mm3) 268 Disclaimer The following section includes nursing documentation that has been pulled in for pharmacy review. Patient's VTE score: 3 Patient's VTE Risk: LOW RISK Clinical trial participant? No VTE prophylaxis NQF [id number] VTE prophylaxis ordered? Yes Type of prophylaxis/treatment: Regino DUGGAN (POST OP) at 0715
[2017-01-18 07:25] LABS: HEMOGLOBIN 12.8 g/dL (14.1-18.0)
--- NOTE | 2017-01-18 07:42 | ACUTE CARE PROGRESS NOTE (QUA) ---
Progress Notes Subjective Date 01/18/17 Time 0741 Note Internal medicine follow-up consult note: Patient is awake and alert postoperative day number 1, complains bitterly of significant pain that is moderately relieved with intravenous Dilaudid. Heart and lung exam unremarkable. Abdomen soft. RIGHT foot is in a splint/ dressing that is clean and dry. Objective Findings Last VS-Temp:100.2 B/P:154/74 Pulse:82 Resp:18 SaO2:93 ROOM AIR Last weight lbs:194 oz:3 K.083 Method:Bed Scales Assessment/Plan Problem List 1. Cellulitis of foot 2. Abscess of foot 3. Chronic pain syndrome 4. Chronic narcotic use 5. Tobacco use 6. Seizure disorder 7. Hyperlipidemia Patient condition Stable Plan: continue current care, agree with antibiotics. Await cultures. In regards to pain management we will discontinue hydrocodone. Patient has been oxycodone dependent for many years. Will restart this. This inpt stay is expected to cross 2 MNs from start of care Yes at 0742
--- NOTE | 2017-01-18 08:42 | CONSULT NOTE ---
Pharmacokinetic Consult Date of consult: 01/18/17 Time of consult: 838 Referring provider: DR. MIX Reason for consult: VANCOMYCIN DOSING Allergies: Coded Allergies: codeine (01/17/17) Home Medications: Active Scripts Phenytoin Sodium (Dilantin 100MG CAP) 100 MG PO Q6 #60 CAP Prov: 07/04/12 Reported Medications OXYCODONE HCL (Oxycodone Hydrochloride) 60 MG PO Q6H Diazepam (Valium 10MG) 10 MG PO BID Atorvastatin Calcium (Lipitor 10MG) (Unknown Dose) PO QHS Ibuprofen (Advil) 800 MG PO TID Height (feet): 6 Height (inches): 1.00 Medical History: CAD? No Angina: No [place]: No Hypertension? No Hyperlipidemia? Yes CHF? No DVT? No PE? No COPD? Yes Asthma? No Anemia? No GERD? No Gastric ulcers? No GI Bleed? No Hernia? No Thyroid Problems? No Hypothyroidism? No CVA? No Seizures? No Diabetes? No Renal Insuffiency? No UTI? No Stones? No BPH? No GB Disease: No Nephritic Syndrome? No Asplenia? No Hepatitis? No Sickle Cell Disease? No Arthritis? No Migraines? No Cataracts? No Glaucoma? No MRSA? No HIV? No TB? No Anxiety? Yes Depression? No Cancer? No More? Yes Additional hx: HX OF THC AND COCAINE USE Labs: Laboratory Tests 01/18/17 0630: Sodium 138, Potassium 3.5, Chloride 105, Carbon Dioxide 27, BUN 9, Creatinine 0.8, Estimated Creat Clear 133, Estimated GFR (MDRD) 101, Glucose 112 H, Calcium 8.3 L, WBC 11.1 H, RBC 4.32 L, Hgb 12.8 L, Hct 38.2 L, MCV 88.4, RDW 13.5, Plt Count 209, MPV 6.1 L, Gran % 84.5 H, Gran # 9.4 H, Lymphocytes % 8.3 L, Monocytes % 6.0, Eosinophils % 0.7, Basophils % 0.6, Lymphocytes # 0.9 , Monocytes # 0.7, Eosinophils # 0.1, Basophils # 0.1, PUBS MCHC 33.6, MCH 29.7 Microbiology 01/17 2009 FOOT: Organism ID (Sequencing 2)(ERA) - RECD 01/17 2009 FOOT: Antimicrobic Susceptibility - RECD 01/17 2009 FOOT: Anaerobic Culture Result 4 - RECD 01/17 2009 FOOT: Anaerobic Culture Result 3 - RECD 01/17 2009 FOOT: Anaerobic Culture Result 2 - RECD 01/17 2009 FOOT: Anaerobic Culture Result 1 - RECD 01/17 2009 FOOT: Anaerobic Culture - RECD 01/17 2009 FOOT: Abscess Culture - RECD 01/17 1435 BLOOD: Anaerobic Blood Culture - RECD 01/17 1435 BLOOD: Aerobic Blood Culture - RECD 01/17 1435 BLOOD: Anaerobic Blood Culture - RECD 01/17 1435 BLOOD: Aerobic Blood Culture - RECD Problem List: 1. Cellulitis of foot Plan: DUE TO PATIENT FACTORS, RECOMMEND VANCOMYCIN 1,500 MG IV Q12H. PHARMACY WILL MONITOR DAILY AND ADJUST APPROPRIATE. at 0841
[2017-01-18] MEDS ORDERED: FLONASE 50 MCG16 GM NS (10:11)
--- NOTE | 2017-01-18 14:18 | ACUTE CARE PROGRESS NOTE ---
Progress note Date: 01/18/17 Assessment: Subjective: Patient is laying in bed and appears comfortable. He says he had a rough night with pain which is better controlled now once he was started on oral oxycodone. He is eating and drinking well. He had a low-grade pyrexia during the night. Objective: I reviewed the vitals, labs, medication, medical progress note and discussed with the nursing staff. Preliminary blood cultures are positive for staph aureus. Laboratory Tests 01/18/17 0630: Sodium 138, Potassium 3.5, Chloride 105, Carbon Dioxide 27, BUN 9, Creatinine 0.8, Estimated Creat Clear 133, Estimated GFR (MDRD) 101, Glucose 112 H, Calcium 8.3 L, WBC 11.1 H, RBC 4.32 L, Hgb 12.8 L, Hct 38.2 L, MCV 88.4, RDW 13.5, Plt Count 209, MPV 6.1 L, Gran % 84.5 H, Gran # 9.4 H, Lymphocytes % 8.3 L, Monocytes % 6.0, Eosinophils % 0.7, Basophils % 0.6, Lymphocytes # 0.9 , Monocytes # 0.7, Eosinophils # 0.1, Basophils # 0.1, PUBS MCHC 33.6, MCH 29.7 01/17/17 0758: Sodium 137, Potassium 3.9, Chloride 100, Carbon Dioxide 27, BUN 9, Creatinine 1.1, Estimated Creat Clear 105, Estimated GFR (MDRD) 70, Glucose 157 H, Uric Acid 3.6, Calcium 8.9, Total Bilirubin 0.6, AST 10 L, ALT 21, Alkaline Phosphatase 113, Total Protein 7.8, Albumin 4.3, Globulin 3.5 H, Albumin/ Globulin Ratio 1.2, WBC 12.9 H, RBC 5.05, Hgb 15.3, Hct 44.6, MCV 88.3, RDW 13.5, Plt Count 268, MPV 6.1 L, Gran % 85.2 H, Gran # 11.0 H, Total Counted 100, Lymphocytes % 7.1 L, Monocytes % 7.0, Eosinophils % 0.2, Basophils % 0.6, Neutrophils 86 H, Lymphocytes (Manual) 8 L, Lymphocytes # 0.9, Monocytes ( Manual) 5, Monocytes # 0.9, Eosinophils # 0.0, Basophils # 0.1, Differential Comment FEW PLT CLUMPS NOTED., RBC/WBC/PLT Morphology NORMAL, Atypical Lymphocytes 1, Platelet Estimate NORMAL, PUBS MCHC 34.2, ESR 8, MCH 30.2 Microbiology Date/Time Procedure - Status Source Growth 01/17 2009 Antimicrobic Susceptibility - RECD FOOT 01/17 2009 Anaerobic Culture Result 4 - RECD FOOT 01/17 2009 Anaerobic Culture Result 3 - RECD FOOT 01/17 2009 Anaerobic Culture Result 2 - RECD FOOT 01/17 2009 Anaerobic Culture Result 1 - RECD FOOT 01/17 2009 Anaerobic Culture - RECD FOOT 01/17 2009 Abscess Culture - RECD FOOT 01/17 2009 Gram Stain - RECD FOOT 01/17 1435 Anaerobic Blood Culture - RECD BLOOD 01/17 1435 Aerobic Blood Culture - RECD BLOOD 01/17 1435 Anaerobic Blood Culture - RES BLOOD 01/17 1435 Aerobic Blood Culture - RES BLOOD Exam: General Appearance: No acute distress. Respiratory: lungs clear to auscultation. Cardiovascular: regular rate/rhythm Gastrointestinal: Abdomen is soft and nontender, normal bowel sounds over all 4 quadrants Neurologic: alert, normal exam, oriented x 3 On examination of his RIGHT lower extremity, he has surgical dressings over the RIGHT foot and ankle. The dressings are clean dry and intact. There is some edema of the forefoot. He has good range of toe movements and normal sensation and circulation. Impression: 1. Cellulitis of foot 2. Abscess of foot 3. Chronic pain syndrome 4. Chronic narcotic use 5. Tobacco use 6. Seizure disorder 7. Hyperlipidemia Plan: I reviewed the intraoperative findings and procedure performed with the patient and his family. Have recommended continuation of IV vancomycin and any changes to be made according to the microbiology results when available. Continued evaluation of the foot, mobilization of the toes. Pain management with the when necessary hydromorphone and oxycodone. Await culture results for any modification of antibiotic regime. For change of dressings tomorrow and likely discharge if progressing well. Medical management as per Dr. Keith's team. Antibiotic Stewardship (2) Current Culture Results Microbiology 01/17 2009 FOOT: Organism ID (Sequencing 2)(ERA) - RECD 01/17 2009 FOOT: Antimicrobic Susceptibility - RECD 01/17 2009 FOOT: Anaerobic Culture Result 4 - RECD 01/17 2009 FOOT: Anaerobic Culture Result 3 - RECD 05/16 2009 FOOT: Anaerobic Culture Result 2 - RECD 01/17 2009 FOOT: Anaerobic Culture Result 1 - RECD 01/17 2009 FOOT: Anaerobic Culture - RECD 01/17 2009 FOOT: Abscess Culture - RECD 01/17 1435 BLOOD: Anaerobic Blood Culture - RECD 01/17 1435 BLOOD: Aerobic Blood Culture - RECD Infxn that will respond? Yes Right drug,dose,and route? Yes More targeted antbx? No at 2357
[2017-01-19 03:26] VITALS: BP 140/81
[2017-01-19 06:57] LABS: HEMOGLOBIN 13.2 g/dL (14.1-18.0); LYMPH # 1.3 K/mm3 (0.7-4.5); LYMPH % 15.2 % (10-50)
--- NOTE | 2017-01-19 07:53 | ACUTE CARE PROGRESS NOTE (QUA) ---
Progress Notes Subjective Date 01/19/17 Time 0752 Note Internal medicine consult follow-up note: Patient's pain medication was upgraded along with some diazepam for muscle spasm which he takes at home. This has seemed to help somewhat. He is much more comfortable this morning. Dressing in the RIGHT ankle is dry and intact. Patient's able to wiggle his toes and has good capillary refill distal to the bandage. Culture results are still pending. Objective Findings Last VS-Temp:98.2 B/P:140/81 Pulse:68 Resp:20 SaO2:94 ROOM AIR Last weight lbs:194 oz:3 K.083 Method:Bed Scales Assessment/Plan Problem List 1. Cellulitis of foot 2. Abscess of foot 3. Chronic pain syndrome 4. Chronic narcotic use 5. Tobacco use 6. Seizure disorder 7. Hyperlipidemia Patient condition Improving, Guarded Plan: continue current care, PICC line placement for long-term IV antibiotics. I anticipate 6-8 weeks of IV antibiotics. This inpt stay is expected to cross 2 MNs from start of care Yes Antibiotic Stewardship (2) Infxn that will respond? Yes Right drug,dose,and route? Yes More targeted antbx? No at 0753
[2017-01-19 08:05] VITALS: BP 112/56
[2017-01-19 08:30] VITALS: BP 112/56
--- NOTE | 2017-01-19 09:29 | CONSULT NOTE ---
Pharmacokinetic Consult Date of consult: 01/19/17 Time of consult: 927 Referring provider: DR. MIX Reason for consult: VANCOMYCIN TROUGH LVEL Allergies: Coded Allergies: codeine (01/17/17) Home Medications: Active Scripts Phenytoin Sodium (Dilantin 100MG CAP) 100 MG PO Q6 #60 CAP Prov: 07/04/12 Reported Medications OXYCODONE HCL (Oxycodone Hcl) 30 MG PO 5XDAY Diazepam (Valium 10MG) 10 MG PO BID Atorvastatin Calcium (Atorvastatin) 80 MG PO DAILY Ibuprofen (Ibuprofen 800MG) 800 MG PO TIDP PRN PAIN Fluticasone Propionate (Flonase 50 Mcg Nasal [place]) 2 SPRAY NS DAILY #16 Height (feet): 6 Height (inches): 1.00 Medical History: CAD? No Angina: No [place]: No Hypertension? No Hyperlipidemia? Yes CHF? No DVT? No PE? No COPD? Yes Asthma? No Anemia? No GERD? No Gastric ulcers? No GI Bleed? No Hernia? No Thyroid Problems? No Hypothyroidism? No CVA? No Seizures? No Diabetes? No Renal Insuffiency? No UTI? No Stones? No BPH? No GB Disease: No Nephritic Syndrome? No Asplenia? No Hepatitis? No Sickle Cell Disease? No Arthritis? No Migraines? No Cataracts? No Glaucoma? No MRSA? No HIV? No TB? No Anxiety? Yes Depression? No Cancer? No More? Yes Additional hx: HX OF THC AND COCAINE USE Labs: Laboratory Tests 01/19/17 0632: Sodium 137, Potassium 3.4 L, Chloride 104, Carbon Dioxide 27, BUN 8, Creatinine 0.8, Estimated Creat Clear 133, Estimated GFR (MDRD) 101, Glucose 107 H, Calcium 8.5, WBC 8.3, RBC 4.43 L, Hgb 13.2 L, Hct 38.9 L, MCV 87.7, RDW 13.4, Plt Count 210, MPV 6.3 L, Gran % 76.8, Gran # 6.4, Lymphocytes % 15.2, Monocytes % 5.9, Eosinophils % 1.5, Basophils % 0.6, Lymphocytes # 1.3, Monocytes # 0.5, Eosinophils # 0.1, Basophils # 0.1, PUBS MCHC 33.9, MCH 29.8, Vancomycin Trough 8.3 Problem List: 1. Cellulitis of foot Plan: BASED ON VANCOMYCIN TROUGH LEVEL, RECOMMEND CHANGING DOSE TO VANCOMYCIN 1500 MG IV Q8H. WILL OBTAIN VANCOMYCIN TROUGH LEVEL TOMORROW. PHARMACY WILL FOLLOW DAILY AND ADJUST APPROPRIATE. Antibiotic Stewardship (2) Infxn that will respond? Yes Right drug,dose,and route? Yes More targeted antbx? No at 8481
--- NOTE | 2017-01-19 14:41 | ACUTE CARE PROGRESS NOTE ---
Progress note Date: 01/19/17 Assessment: Subjective: Patient is lying in bed and appears comfortable. He says his pain is better controlled now and is feeling better than yesterday. He is eating and drinking well. Objective: I reviewed the vitals, labs, medication, medical progress note and discussed with the nursing staff. Preliminary blood cultures are positive for staph aureus. Laboratory Tests 01/19/17 0632: Sodium 137, Potassium 3.4 L, Chloride 104, Carbon Dioxide 27, BUN 8, Creatinine 0.8, Estimated Creat Clear 133, Estimated GFR (MDRD) 101, Glucose 107 H, Calcium 8.5, WBC 8.3, RBC 4.43 L, Hgb 13.2 L, Hct 38.9 L, MCV 87.7, RDW 13.4, Plt Count 210, MPV 6.3 L, Gran % 76.8, Gran # 6.4, Lymphocytes % 15.2, Monocytes % 5.9, Eosinophils % 1.5, Basophils % 0.6, Lymphocytes # 1.3, Monocytes # 0.5, Eosinophils # 0.1, Basophils # 0.1, PUBS MCHC 33.9, MCH 29.8, Vancomycin Trough 8.3 Vital Signs Date Time Temp Pulse Resp B/P Pulse O2 O2 Flow FiO2 Ox Delivery Rate 01/19 1241 20 01/19 1128 20 01/19 1010 20 01/19 0830 98.1 61 20 112/56 93 01/19 0805 98.1 61 20 112/56 93 ROOM AIR 01/19 0730 20 01/19 0730 20 01/19 0645 20 01/19 0526 20 01/19 0326 98.2 68 20 140/81 94 ROOM AIR 01/19 0313 20 01/19 0312 20 01/19 0058 20 01/18 2317 20 01/18 2300 20 01/18 2136 20 01/18 2049 20 01/18 2045 98.1 62 20 131/70 97 ROOM AIR 01/18 2015 98.1 62 20 131/70 97 01/18 1855 20 01/18 1715 20 01/18 1713 20 01/18 1603 97.0 66 20 153/82 94 ROOM AIR 01/18 1523 20 Exam: General Appearance: No acute distress. Respiratory: lungs clear to auscultation. Cardiovascular: regular rate/rhythm Gastrointestinal: Abdomen is soft and nontender, normal bowel sounds Neurologic: alert, normal exam, oriented x 3 On examination of his RIGHT lower extremity, he has surgical dressings over the RIGHT foot and ankle. The dressings are clean dry and intact. There is some edema of the forefoot. We have changed his dressings and removed the iodoform gauze packing. The wound and abscess cavity looks healthy. He has good range of toe movements and normal sensation and circulation. Impression: 1. Cellulitis of foot 2. Abscess of foot 3. Chronic pain syndrome 4. Chronic narcotic use 5. Tobacco use 6. Seizure disorder 7. Hyperlipidemia Plan: I reviewed the findings and progress with the patient and his family. I have recommended continuation of IV vancomycin and any changes to be made according to the final microbiology results when available. He is going to get a PICC line today as ordered by Dr. Keith. Expected length of IV antibiotics is 6-8 weeks depending on the response. Continue elevation of the foot, mobilization of the toes. Pain management with when necessary hydromorphone and oxycodone. Await culture results for any modification of antibiotic regime. Medical management as per Dr. Keith's team. Antibiotic Stewardship (2) Current Culture Results Microbiology 01/17 2009 FOOT: Antimicrobic Susceptibility - RECD 01/17 2009 FOOT: Anaerobic Culture Result 4 - RECD 01/17 2009 FOOT: Anaerobic Culture Result 3 - RECD 01/17 2009 FOOT: Anaerobic Culture Result 2 - RECD 01/17 2009 FOOT: Anaerobic Culture Result 1 - RECD 01/17 2009 FOOT: Anaerobic Culture - RECD 01/17 2009 FOOT: Abscess Culture - RES 01/17 2009 FOOT: Gram Stain - RES 01/17 1435 BLOOD: Anaerobic Blood Culture - RECD 01/17 1435 BLOOD: Aerobic Blood Culture - RECD Infxn that will respond? Yes Right drug,dose,and route? Yes More targeted antbx? No at 1441
--- NOTE | 2017-01-19 15:41 | RADIOLOGY REPORT PS360 ---
CHEST PORTABLE-PICC PLACEMENT CLINICAL INDICATION: PICC LINE INSERTION ORDERING PHYSICIAN: TINY MIX MD PATIENT AGE: 51 years COMPARISON: 01/17/2017 FINDINGS: Left upper 70 PICC line has been inserted with the tip in good position in the region of the superior vena cava. There are low lung volumes with no obvious lobar consolidation or collapse. There are some atelectatic changes in the lung bases. IMPRESSION: Good placement of left upper extremity PICC line
[2017-01-19 16:18] VITALS: BP 135/76
[2017-01-19 19:45] VITALS: BP 132/64
[2017-01-19 19:47] VITALS: BP 132/64
[2017-01-20 04:00] VITALS: BP 148/65
--- NOTE | 2017-01-20 05:16 | RADIOLOGY REPORT PS360 ---
CHEST PORTABLE-PICC PLACEMENT CLINICAL INDICATION: PICC LINE INSERTION ORDERING PHYSICIAN: TINY MIX MD PATIENT AGE: 51 years COMPARISON: 01/17/2017 FINDINGS: PICC line has been inserted via left upper extremity approach with the tip in good position in the region of the superior vena cava. Unremarkable cardiovascular structures and clear lungs. IMPRESSION: PICC line in good position
[2017-01-20 06:29] LABS: HEMOGLOBIN 12.2 g/dL (14.1-18.0); LYMPH % 14.6 % (10-50)
[2017-01-20 07:26] VITALS: BP 129/67
--- NOTE | 2017-01-20 07:47 | ACUTE CARE PROGRESS NOTE (QUA) ---
Progress Notes Subjective Date 01/20/17 Time 0746 Note Patient has no fever, his main complaint is back pain of which he complains bitterly, along with "my back is twisted." Cardiopulmonary exam unchanged. Distal toes and foot look better with less swelling. Patient is without rash. Objective Findings Last VS-Temp:98.4 B/P:129/67 Pulse:77 Resp:20 SaO2:95 ROOM AIR Last weight lbs:194 oz:3 K.083 Method:Bed Scales Assessment/Plan Problem List 1. Cellulitis of foot 2. Abscess of foot 3. Chronic pain syndrome 4. Chronic narcotic use 5. Tobacco use 6. Seizure disorder 7. Hyperlipidemia Patient condition Improving Plan: continue current care, antibiotic coverage is adequate. Culture results reviewed. We will change pain medication to reflecthis home dosing. This inpt stay is expected to cross 2 MNs from start of care Yes Antibiotic Stewardship (2) Current Culture Results Microbiology 01/17 2009 FOOT: Antimicrobic Susceptibility - RECD 01/17 2009 FOOT: Anaerobic Culture Result 4 - RECD 01/17 2009 FOOT: Anaerobic Culture Result 3 - RECD 01/17 2009 FOOT: Anaerobic Culture Result 2 - RECD 01/17 2009 FOOT: Anaerobic Culture Result 1 - RECD 01/17 2009 FOOT: Anaerobic Culture - RECD 01/17 2009 FOOT: Abscess Culture - COMP STAPHYLOCOCCUS AUREUS 01/17 2009 FOOT: Gram Stain - COMP 01/17 1435 BLOOD: Anaerobic Blood Culture - RECD 01/17 1435 BLOOD: Aerobic Blood Culture - RECD Infxn that will respond? Yes Right drug,dose,and route? Yes More targeted antbx? No at 0747
[2017-01-20 08:56] VITALS: BP 129/67
--- NOTE | 2017-01-20 14:08 | ACUTE CARE PROGRESS NOTE ---
Progress note Date: 01/20/17 Assessment: Subjective: Patient is lying in bed and appears comfortable. He says his pain is well controlled and he is feeling well with himself. No history of any fevers, chills or rigors. He is eating and drinking well. Objective: I reviewed the vitals, labs, medication, medical progress note and discussed with the nursing staff. Intraoperative wound cultures are positive for MRSA and the sensitivities are noted. Laboratory Tests 01/20/17 0610: Sodium 140, Potassium 3.4 L, Chloride 105, Carbon Dioxide 30, BUN 8, Creatinine 0.7 L, Estimated Creat Clear 152, Estimated GFR (MDRD) 118, Glucose 104, Calcium 8.6, WBC 6.9, RBC 4.11 L, Hgb 12.2 L, Hct 35.8 L, MCV 87.1, RDW 13.2, Plt Count 239, MPV 6.3 L, Gran % 73.2, Gran # 5.1, Lymphocytes % 14.6, Monocytes % 8.0, Eosinophils % 3.4, Basophils % 0.8, Lymphocytes # 1.0, Monocytes # 0.6, Eosinophils # 0.2, Basophils # 0.1, PUBS MCHC 34.1, MCH 29.7 Vital Signs Date Time Temp Pulse Resp B/P Pulse O2 O2 Flow FiO2 Ox Delivery Rate 01/20 1207 20 01/20 1207 20 01/20 1007 20 01/20 0856 98.4 77 20 129/67 95 01/20 0809 20 01/20 0801 20 01/20 0800 20 01/20 0726 98.4 77 20 129/67 95 ROOM AIR 01/20 0558 16 01/20 0450 18 01/20 0400 99.1 58 16 148/65 99 ROOM AIR 01/20 0309 16 01/20 0110 18 01/20 0109 18 01/20 0013 16 01/19 2308 22 01/19 2118 18 01/20 2016 16 01/19 194 98.2 64 18 132/64 94 ROOM AIR 01/19 1945 98.2 64 18 132/64 94 01/19 1919 18 01/19 1918 18 01/19 1659 18 01/19 1624 20 01/19 1618 98.0 67 20 135/76 95 ROOM AIR 01/19 1449 20 Exam: General Appearance: No acute distress. Respiratory: lungs clear to auscultation. Cardiovascular: regular rate/rhythm Gastrointestinal: Abdomen is soft and nontender, normal bowel sounds Neurologic: alert, normal exam, oriented x 3 On examination of his RIGHT lower extremity, he has surgical dressings over the RIGHT foot and ankle. The dressings are clean dry and intact. There is some edema of the forefoot. We have changed his dressings and apply new dressings. The wound and abscess cavity looks healthy- there is little amount of purulent discharge. He has good range of toe movements and normal sensation and circulation. Impression: 1. Cellulitis of foot 2. Abscess of foot 3. Chronic pain syndrome 4. Seizure disorder 5. Hyperlipidemia 6. Osteomyelitis of ankle or foot 7. Chronic narcotic use 8. Tobacco use Plan: I reviewed the findings and progress with the patient and his family. I have reviewed the antibiotics regime and sensitivities. He is receiving 1500 mg of IV vancomycin every 8 hours. This I feel is impractical to continue on an outpatient basis for 6 weeks. Therefore have discussed with Dr. Rai as well as our pharmacist and we have decided to start him on oral Zyvox 600 mg by mouth twice a day and rifampin 300 mg by mouth twice a day for 6 weeks. As we are not continuing with IV vancomycin as initially planned, we'll remove his PICC line. As he has progressed well sufficiently, we'll discharge home with regular dressing changes through the wound care clinic. Advised to Continue elevation of the foot, mobilization of the toes. Pain management with when necessary hydromorphone and oxycodone. I discussed the above plan with Dr. Rai and he agrees. Follow-up in my office next week and with Dr. Rai in 2 weeks. I have explained the same to the patient. Medical management as per Dr. Keith's team. Antibiotic Stewardship (2) Current Culture Results Microbiology 01/17 2009 FOOT: Antimicrobic Susceptibility - RECD 01/17 2009 FOOT: Anaerobic Culture Result 4 - RECD 01/17 2009 FOOT: Anaerobic Culture Result 3 - RECD 01/17 2009 FOOT: Anaerobic Culture Result 2 - RECD 01/17 2009 FOOT: Anaerobic Culture Result 1 - RECD 01/17 2009 FOOT: Anaerobic Culture - RECD 01/17 2009 FOOT: Abscess Culture - COMP STAPHYLOCOCCUS AUREUS 01/17 2009 FOOT: Gram Stain - COMP 01/17 1435 BLOOD: Anaerobic Blood Culture - RES 01/17 1435 BLOOD: Aerobic Blood Culture - RES Infxn that will respond? Yes Right drug,dose,and route? Yes More targeted antbx? No Comment: 6 weeks of oral Zyvox and rifampin as an outpatient basis
[2017-01-20] MEDS ORDERED: LINEZOLID600 MG PO (14:32)
[2017-01-20] MEDS ORDERED: RIFADIN 300MG300 MG PO (14:35)
--- NOTE | 2017-01-20 14:40 | DISCHARGE SUMMARY STANDARD ---
Demographics Admit date: 01/17/17 Discharge date: 01/20/17 History of present illness History of present illness Patient is a pleasant 51-year-old gentleman seen in the emergency department today for orthopedic consultation regarding his RIGHT foot pain and swelling. He presented to emergency department today with history of increasing pain since yesterday and difficulty weightbearing. No history of any fevers, chills or rigors. He says he has been having pain and swelling over the dorsoradial aspect of his RIGHT foot for the last few years. 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 No history of any distal tingling or numbness. I have seen him a few weeks ago in the office and he recommended removal of the hazel from his RIGHT foot. However, he did not want surgery at that time citing work commitments. Evaluation in the ER today including x-rays showed an abscess with surrounding cellulitis and a loose partially extruded orthopedics staple in his foot. Patient was admitted for the incisional drainage , removal of the loose implant and IV antibiotics. Hospital Course Hospital Course: Patient was admitted for incision and drainage of the abscess and removal of the hazel from his LEFT foot and debridement. He underwent surgery the same day and following incision of the swelling, santo pus was noted. Cultures were also obtained. The staple was removed from the foot and the cavity was debrided thoroughly. The wound was packed with iodoform gauze and he was started on IV vancomycin. The interested reader is referred to operative note for details. His postoperative course was uneventful except for issues with managing his pain medication. His pain was well-controlled once he was started on oxycodone and Valium as he was previously taking these at home. He had fever the first postoperative day but didn't have any fever afterwards. Blood cultures and wound cultures were positive for MRSA on the sensitivities were noted. He had a PICC line placed in the LEFT upper arm for IV antibiotics for 6 weeks. However on the day of discharge, we have noticed that he is receiving 1500 mg of IV vancomycin every 8 hours. This we feel is impractical to continue on an outpatient basis for 6 weeks. Therefore , I have discussed with Dr. Rai as well as our pharmacist and we have decided to start him on Zyvox 600 mg by mouth twice a day and rifampin 300 mg by mouth twice a day for 6 weeks. As we are not continuing with IV vancomycin as initially planned, we have removed his PICC line. Patient remained hemodynamically stable, fairly comfortable with when necessary pain medication and eating and drinking well. The dressings were changed regularly and there was minimal discharge from the wound. The cellulitis has improved significantly. As he has progressed well sufficiently, we'll discharge home with regular dressing changes through the wound care clinic. Advised to Continue elevation of the foot, mobilization of the toes. Pain management with when necessary hydromorphone and oxycodone. Follow-up in my office next week and with Dr. Rai in 2 weeks. Today he is doing well, alert, oriented x3. Expected pain is noted. However his exam has improved very nicely. He will be discharge home with appropriate antibiotic regime and instructions. We'll arrange wound dressings through our wound care clinic. At time of discharge the patient's vital signs were stable and he was afebrile. Our recommendations to him include elevation, active foot and ankle mobilization and mobilize weightbearing as tolerated and take regular antibiotics as prescribed. Dressing changes to wound care clinic as needed. We will plan on seeing him back in approximately 5 days for wound recheck and to remove the sutures. Her family physician, Dr. Keith, will be managing his medical problems and medications. Please feel free to give me a call at or via the hospital optical effects camera operator [phone] orthopaedic questions or concerns. Condition at discharge: improved and stable. Treatments and Procedures: 1. Incision and drainage of abscess, RIGHT foot 2. Removal of loose, infected orthopedic implant (staple), RIGHT foot. Discharge diagnoses Problem List 1. Cellulitis of foot 2. Abscess of foot 3. Chronic pain syndrome 4. Seizure disorder 5. Hyperlipidemia 6. Osteomyelitis of ankle or foot 7. Chronic narcotic use 8. Tobacco use Medications Medications: Discharge meds are as noted. Follow up Follow up in office in: 5 DAYS with: MARIA DEL ROSARIO BRAR, TINY BADILLO
[2017-01-20 15:25] VITALS: BP 124/74
[2017-01-20 16:57] VITALS: BP 124/74
== END 2017-01-20 16:50 | disposition home or self-care (01) | DRG 908 ==
LOC: ER 07:45 → 2ND 10:44 → ER 10:44 → 2ND 11:25
PROVIDERS: Emergency Medicine; Internal Medicine Adolescent Medicine; Orthopaedic Surgery
PROC: 0S9F0ZZ Drainage of Right Ankle Joint, Open Approach (ICD-10-PCS; principal; 2017-01-17 16:00)
PROC: 0SPG04Z Removal of Internal Fixation Device from Left Ankle Joint, Open Approach (ICD-10-PCS; principal; 2017-01-17 16:00)
DX: T84.7XXS Infection and inflammatory reaction due to other internal orthopedic prosthetic devices, implants and grafts, sequela (principal); L03.115 Cellulitis of right lower limb; L02.415 Cutaneous abscess of right lower limb; B95.62 Methicillin resistant Staphylococcus aureus infection as the cause of diseases classified elsewhere; T84.428 Displacement of other internal orthopedic devices, implants and grafts; T84.84XS Pain due to internal orthopedic prosthetic devices, implants and grafts, sequela
CPT/HCPCS: C1751; J2405; J3370

== ENCOUNTER → 2017-05-04 | Outpatient (CLI) | payer MEDICAID ==
[~2017-05-04] MED LIST changes: +FLONASE 50 MCG16 GM NS; +LINEZOLID600 MG PO; +RIFADIN 300MG300 MG PO
--- NOTE | 2017-05-04 13:20 | RADIOLOGY REPORT PS360 ---
FOOT-RT-3 VIEWS HISTORY: Follow-up arthrodesis S/P SURGERY FU ORDERING PHYSICIAN: TINY MIX MD PATIENT AGE: 51 years COMPARISON: None FINDINGS: There is been prior arthrodesis at the calcaneal cuboid articulation with removal of a large metallic screw. 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 IMPRESSION: Overall no change in the osteoarthritic change and postsurgical change at the calcaneocuboid junction
== END ==
LOC: RAD 12:12
DX: Z98.890 Other specified postprocedural states (principal)